=== PATIENT | male | born 1965 | race Two or more races ===

== ENCOUNTER 2016-05-03 08:19 | Emergency (ER) | payer MEDICAID ==
[~2016-05-03] VITALS: Ht 165.1 cm; Wt 101.6 kg
[2016-05-03 08:26] VITALS: BP 140/95
[2016-05-03] MEDS ORDERED: KETOROLAC TROMETH 60MG/2ML VIAL IM ONE (09:45)
== END 2016-05-03 10:43 | disposition home or self-care (01) ==
LOC: ER 08:25
DX: S46.012A Strain of muscle(s) and tendon(s) of the rotator cuff of left shoulder, initial encounter (principal); X58.XXXA Exposure to other specified factors, initial encounter; Y93.89 Activity, other specified; Y99.8 Other external cause status; Y92.69 Other specified industrial and construction area as the place of occurrence of the external cause
CPT/HCPCS: 73030; 93005; 96372; 99284; J1885

== ENCOUNTER 2016-07-03 11:39 | Emergency (ER) | payer MEDICAID ==
[~2016-07-03] VITALS: Ht 165.1 cm; Wt 90.7 kg
[2016-07-03 12:10] VITALS: BP 130/98
[2016-07-03] MEDS ORDERED: KETOROLAC TROMETH 60MG/2ML VIAL IM ONE (12:30)
== END 2016-07-03 12:56 | disposition home or self-care (01) ==
LOC: ER 11:39
DX: M25.511 Pain in right shoulder (principal); I10 Essential (primary) hypertension; E78.5 Hyperlipidemia, unspecified
CPT/HCPCS: 73030; 96372; 99284; J1885

== ENCOUNTER 2018-04-28 20:50 | Emergency (ER) | payer MEDICAID ==
[~2018-04-28] VITALS: Ht 167.6 cm; Wt 88.5 kg
[2018-04-28 22:03] LABS: Basophils # (auto) 0.1 uL; Basophils % (auto) 0.6 % (0.0-2.0); Eosinophils # (auto) 0.1 uL; Eosinophils % (auto) 0.7 % (0.0-7.0); Hematocrit 46.5 % (41.0-53.0); Hemoglobin 15.5 g/dL (13.5-17.5); Lymphocytes # (auto) 1.6 uL; Lymphocytes % (auto) 14.5 % (10.0-50.0); Mean Corpuscular Hemoglobin 30.3 pg (28.0-32.0); Mean Corpuscular Hgb Conc. 33.3 g/dL (32.0-36.0); Monocytes # (auto) 0.6 uL; Monocytes % (auto) 4.9 % (0.0-12.0); Neutrophils % (auto) 79.3 % (37.0-80.0); Nucleated Red Blood Cells % 0.1 %; Platelet Count (auto) 316 10^3/uL (140-450); Red Cell Distribution Width 14.9 % (11.8-14.3); White Blood Cell 11.3 10^3/uL (4.4-10.8)
[2018-04-28 22:15] LABS: Chloride 108 mmol/L (98-107); Potassium 3.6 mmol/L (3.5-5.1); Sodium 138 mmol/L (136-145)
[2018-04-28 22:21] LABS: INR 0.95 (0.9-1.15); Partial Thromboplastin Time 27.4 sec (23.78-33.04); Prothrombin Time 10.2 sec (9.27-12.13)
[2018-04-28 22:22] LABS: Urine Bacteria NONE SEEN /hpf (None Seen); Urine Blood Negative /uL (Negative); Urine Mucus FEW (None Seen); Urine Specific Gravity 1.031 (1.001-1.035); Urine WBC 1 /hpf (0 - 3)
[2018-04-28 22:25] LABS: Alanine Aminotransferase 23 U/L (16-61); Albumin 4.2 g/dL (3.4-5.0); Alkaline Phosphatase 97 U/L (45-117); Amylase 67 U/L (25-115); Anion Gap 5 (5-15); Aspartate Aminotransferase 11 U/L (15-37); BUN/Creatinine Ratio 13.2; Bilirubin, Total 0.3 mg/dL (0.2-1.0); Blood Urea Nitrogen 10 mg/dL (7-18); Calcium 8.5 mg/dL (8.5-10.1); Carbon Dioxide 25 mmol/L (21-32); GFR African American 137 mL/min; GFR Non-African American 114 mL/min; Glucose 100 mg/dL (74-106); Lipase 79 U/L (73-393); Magnesium 2.3 mg/dL (1.6-2.6); Total Protein 7.9 g/dL (6.4-8.2)
[2018-04-29] VITALS: BP 136/84
[2018-04-29] MEDS ORDERED: ONDANSETRON HCL 4 MG/2 ML VIAL IV ONE
[2018-04-29] MEDS ORDERED: MORPHINE SULFATE 4 MG/ML SYR/VIAL IV ONE
== END 2018-04-29 01:51 | disposition home or self-care (01) ==
LOC: ER 20:51
DX: K29.00 Acute gastritis without bleeding (principal); D72.829 Elevated white blood cell count, unspecified; E78.5 Hyperlipidemia, unspecified; I10 Essential (primary) hypertension; Z90.49 Acquired absence of other specified parts of digestive tract
CPT/HCPCS: 36415; 71046; 74176; 80053; 81001; 82150; 83690; 83735; 84484; 85025; 85610; 85730; 93005; 96374; 96375; 99284; J2270; J2405

== ENCOUNTER 2018-06-30 12:19 | Emergency (ER) | payer MEDICARE, MEDICAID ==
[~2018-06-30] VITALS: Ht 167.6 cm; Wt 90.7 kg
[2018-06-30 12:33] VITALS: BP 125/83
== END 2018-06-30 14:26 | disposition home or self-care (01) ==
LOC: ER 12:22
DX: H66.93 Otitis media, unspecified, bilateral (principal); E78.5 Hyperlipidemia, unspecified; I10 Essential (primary) hypertension; Z90.49 Acquired absence of other specified parts of digestive tract
CPT/HCPCS: 82962

== ENCOUNTER → 2018-07-30 | Outpatient (CLI) | payer MEDICARE, MEDICAID ==
[~2018-07-30] MED LIST: PERCOT PO
[2018-07-30 11:35] LABS: Urine Bacteria NONE SEEN /hpf (None Seen); Urine Blood Negative /uL (Negative); Urine Specific Gravity 1.015 (1.001-1.035); Urine WBC <1 /hpf (0 - 3)
[2018-07-30 11:41] LABS: Basophils # (auto) 0.1 uL; Eosinophils # (auto) 0.1 uL; Eosinophils % (auto) 2.3 % (0.0-7.0); Hematocrit 49.7 % (41.0-53.0); Lymphocytes # (auto) 1.7 uL; Lymphocytes % (auto) 26.8 % (10.0-50.0); Mean Corpuscular Hemoglobin 31.3 pg (28.0-32.0); Mean Corpuscular Hgb Conc. 34.2 g/dL (32.0-36.0); Mean Corpuscular Volume 91.5 fL (80.0-100.0); Monocytes # (auto) 0.4 uL; Monocytes % (auto) 6.7 % (0.0-12.0); Neutrophils % (auto) 63.2 % (37.0-80.0); Nucleated Red Blood Cells % 0.1 %; Platelet Count (auto) 291 10^3/uL (140-450); Red Blood Cells 5.43 10^6/uL (4.5-5.90); Red Cell Distribution Width 14.4 % (11.8-14.3); White Blood Cell 6.4 10^3/uL (4.4-10.8)
[2018-07-30 12:03] LABS: Albumin 4.3 g/dL (3.4-5.0); BUN/Creatinine Ratio 14.7; Calcium 9.3 mg/dL (8.5-10.1)
[2018-07-30 12:10] LABS: Bilirubin, Total 0.5 mg/dL (0.2-1.0); Total Protein 8.1 g/dL (6.4-8.2)
== END | disposition home or self-care (01) ==
LOC: LAB 10:50
PROVIDERS: ATTEND Internal Medicine
DX: Z12.5 Encounter for screening for malignant neoplasm of prostate (principal); I10 Essential (primary) hypertension; E78.5 Hyperlipidemia, unspecified; R79.89 Other specified abnormal findings of blood chemistry
CPT/HCPCS: 36415; 80053; 80061; 81001; 83036; 84153; 84443; 85025

== ENCOUNTER 2018-08-01 10:47 | Inpatient (IN) | payer MEDICARE, MEDICAID ==
[~2018-08-01] VITALS: Ht 165.1 cm; Wt 83.7 kg
[2018-08-01] MEDS ORDERED: SODIUM CHLORIDE 0.9% 500 ML IVB ONE (11:05)
[2018-08-01] MEDS ORDERED: FAMOTIDINE (10MG/ML) 2ML VL IV ONE (11:15)
[2018-08-01] MEDS ORDERED: MORPHINE SULFATE 4 MG/ML SYR/VIAL IV ONE ×2 (11:15→14:00)
[2018-08-01] MEDS ORDERED: ONDANSETRON HCL 4 MG/2 ML VIAL IV ONE (11:15)
[2018-08-01 11:31] LABS: Basophils # (auto) 0.1 uL; Eosinophils # (auto) 0.1 uL; Eosinophils % (auto) 0.6 % (0.0-7.0); Hematocrit 52.9 % (41.0-53.0); Hemoglobin 18.1 g/dL (13.5-17.5); Lymphocytes # (auto) 2.2 uL; Lymphocytes % (auto) 21.9 % (10.0-50.0); Mean Corpuscular Hemoglobin 31.3 pg (28.0-32.0); Mean Corpuscular Hgb Conc. 34.2 g/dL (32.0-36.0); Mean Corpuscular Volume 91.6 fL (80.0-100.0); Monocytes # (auto) 0.9 uL; Monocytes % (auto) 8.6 % (0.0-12.0); Neutrophils # (auto) 6.9 uL; Neutrophils % (auto) 67.9 % (37.0-80.0); Nucleated Red Blood Cells % 0.3 %; Platelet Count (auto) 307 10^3/uL (140-450); Red Blood Cells 5.78 10^6/uL (4.5-5.90); Red Cell Distribution Width 14.3 % (11.8-14.3); White Blood Cell 10.2 10^3/uL (4.4-10.8)
[2018-08-01 11:45] LABS: Amylase 48 U/L (25-115); INR 0.96 (0.9-1.15); Lipase 59 U/L (73-393); Partial Thromboplastin Time 29.4 sec (23.64-32.05); Prothrombin Time 10.4 sec (9.06-12.60)
[2018-08-01 11:47] LABS: Albumin 4.8 g/dL (3.4-5.0); BUN/Creatinine Ratio 10.9; Calcium 9.9 mg/dL (8.5-10.1); Potassium 3.7 mmol/L (3.5-5.1)
[2018-08-01 11:49] LABS: Bilirubin, Total 0.7 mg/dL (0.2-1.0); Total Protein 9.4 g/dL (6.4-8.2)
[2018-08-01] MEDS ORDERED: MORPHINE SULF INJ 2 MG/ML SYRINGE 1ML IV PRN (13:30)
[2018-08-01] MEDS ORDERED: NITROGLYCERIN 0.4 MG SL TAB SL PRN (13:30)
[2018-08-01] MEDS ORDERED: MORPHINE SULFATE 4 MG/ML SYR/VIAL IV PRN (13:30)
[2018-08-01] MEDS ORDERED: ACETAMINOPHEN 500 MG TAB PO PRN (13:30)
[2018-08-01] MEDS ORDERED: FAMOTIDINE (10MG/ML) 2ML VL IV SCH (13:30)
[2018-08-01] MEDS ORDERED: traMADol HCL 50 MG TAB PO PRN (13:30)
[2018-08-01] MEDS ORDERED: MORPHINE SULFATE 4 MG/ML SYR/VIAL ONE (13:55)
[2018-08-01] MEDS: SODIUM CHLORIDE 0.9% 1,000 ML IV SCH ×2 (13:56→23:30)
[2018-08-01] MEDS: PROMETHAZINE HCL 25 MG/ML 1ML IV PRN ×2 (13:59→20:33)
[2018-08-01] MEDS ORDERED: PANTOPRAZOLE 40 MG TAB PO ONE (14:15)
[2018-08-01] MEDS ORDERED: MANNITOL FTV 25% 12.5 GM/50 ML 50 ML IV ONE (14:30)
[2018-08-01] MEDS ORDERED: MANNITOL 20 % (20GM/100ML) 500 ML IV ONE (15:03)
[2018-08-01] MEDS ORDERED: diphenhdrAMINE HCL 50 MG/1 ML VL ONE (15:18)
[2018-08-01] MEDS ORDERED: NALOXONE HCL 0.4 MG/ML VIAL ONE (15:18)
[2018-08-01] MEDS ORDERED: FLUMAZENIL 0.1 MG/ML INJ 10ML MDV IV ONE (15:18)
[2018-08-01] MEDS ORDERED: LIDOCAINE VISCOUS 2% 15ML UD ONE (15:18)
[2018-08-01] MEDS: MIDAZOLAM HCL 5 MG/ML-1ML VIAL ONE ×2 (15:39→15:42)
[2018-08-01] MEDS: fentaNYL CITRATE 100 MCG/2 ML VL ONE ×2 (15:39→15:42)
--- NOTE | 2018-08-01 16:25 | NUR ---
MS admit from RYANNE SCHMITT admitted to tele/MS after SBAR received. Patient oriented to Lili ackerman RN, unit, room, bed, and unit policies regarding patient care and visiting hours. Patient weighed by bed scale and encouraged to call if they need something. Patient is s/p EGD. Instructed patient on POC, fall precautions and to call for assistance as needed. patient verbalized understanding. Will continue to monitor q1hr & PRN.
[2018-08-01 16:53] VITALS: BP 108/78
--- NOTE | 2018-08-01 17:23 | NUR ---
RE: mannitol Called DIVISIONAL MERCHANDISING MANAGER to request Mannitol per MD's order. Medication to be sent to the unit per DIVISIONAL MERCHANDISING MANAGERAp.
[2018-08-01 17:38] VITALS: BP 108/78
[2018-08-01] MEDS: SUCRALFATE 1 GM/10 ML ORAL SUSP PO SCH ×2 (17:39→20:32)
[2018-08-01] MEDS: OXYCODONE W/ ACETAMINOPHEN 5/325MG TABLET PO PRN (17:40)
[2018-08-01 18:15] LABS: Hematocrit 46.4 % (41.0-53.0); Hemoglobin 15.4 g/dL (13.5-17.5)
--- NOTE | 2018-08-01 18:59 | NUR ---
Closing note patient resting in bed with even and unlabored respirations, no distress noted. Fall precautions in place with bed in lowest locked position and x2 side rails up, call light within reach. Patient's personal cane at bedside.
[2018-08-01] MEDS: MORPHINE SULFATE 4 MG/ML SYR/VIAL IV PRN (20:33)
[2018-08-01] MEDS: PANTOPRAZOLE 40 MG TAB PO SCH (20:33)
[2018-08-01] MEDS: TEMAZEPAM 15 MG CAP PO PRN (21:33)
[2018-08-01 21:37] VITALS: BP 121/79
[2018-08-01 23:46] LABS: Urine Bacteria NONE SEEN /hpf (None Seen); Urine Blood Negative /uL (Negative); Urine Specific Gravity 1.019 (1.001-1.035); Urine WBC <1 /hpf (0 - 3)
[2018-08-02] MEDS: OXYCODONE W/ ACETAMINOPHEN 5/325MG TABLET PO PRN (00:34)
[2018-08-02] MEDS: PROMETHAZINE HCL 25 MG/ML 1ML IV PRN ×2 (00:36→05:59)
[2018-08-02] MEDS: MORPHINE SULFATE 4 MG/ML SYR/VIAL IV PRN ×5 (00:36→20:25)
[2018-08-02 01:38] LABS: Hematocrit 44.3 % (41.0-53.0)
[2018-08-02 05:13] VITALS: BP 101/75
[2018-08-02 05:33] LABS: Hematocrit 43.2 % (41.0-53.0); Hemoglobin 14.4 g/dL (13.5-17.5)
[2018-08-02] MEDS: SUCRALFATE 1 GM/10 ML ORAL SUSP PO SCH ×4 (06:00→20:35)
--- NOTE | 2018-08-02 07:05 | NUR ---
Opening Shift Note Assumed care of patient, awake and alert. No S/S of distress/SOB or pain. Instructed on POC and to call for assist PRN, will continue to monitor for changes Q1hr and PRN.
[2018-08-02 08:00] VITALS: BP 143/85
[2018-08-02 09:00] VITALS: BP 93/64
[2018-08-02] MEDS: SODIUM CHLORIDE 0.9% 1,000 ML IV SCH ×2 (09:30→20:59)
[2018-08-02] MEDS: PANTOPRAZOLE 40 MG TAB PO SCH ×2 (10:34→20:25)
[2018-08-02 13:18] VITALS: BP 111/77
[2018-08-02 17:05] VITALS: BP 110/78
--- NOTE | 2018-08-02 19:20 | NUR ---
Care endorsed to production shift supervisor RN. No distress noted, bedside rounding performed with production shift supervisor RN.
--- NOTE | 2018-08-02 19:51 | NUR ---
received report frmonik chaidez rn poc reviewed
[2018-08-02] MEDS: TEMAZEPAM 15 MG CAP PO PRN (21:22)
[2018-08-02 22:00] VITALS: BP 105/79
--- NOTE | 2018-08-02 23:27 | NUR ---
pt pulled out iv accidently cannula intact new iv site 22g right forearm
[2018-08-03] MEDS: MORPHINE SULFATE 4 MG/ML SYR/VIAL IV PRN ×4 (00:30→14:00)
--- NOTE | 2018-08-03 04:34 | NUR ---
resting with eyes closed resp even and unlabored, no c/o discomfort at this time
[2018-08-03 05:00] VITALS: BP 107/66
[2018-08-03] MEDS: SUCRALFATE 1 GM/10 ML ORAL SUSP PO SCH ×3 (05:08→17:00)
[2018-08-03] MEDS: SODIUM CHLORIDE 0.9% 1,000 ML IV SCH ×2 (05:13→15:30)
[2018-08-03 05:42] LABS: Basophils # (auto) 0.1 uL; Basophils % (auto) 1.1 % (0.0-2.0); Eosinophils # (auto) 0.2 uL; Eosinophils % (auto) 3.5 % (0.0-7.0); Hematocrit 42.7 % (41.0-53.0); Hemoglobin 14.4 g/dL (13.5-17.5); Lymphocytes # (auto) 2.5 uL; Lymphocytes % (auto) 45.4 % (10.0-50.0); Mean Corpuscular Hemoglobin 30.9 pg (28.0-32.0); Mean Corpuscular Hgb Conc. 33.8 g/dL (32.0-36.0); Mean Corpuscular Volume 91.5 fL (80.0-100.0); Monocytes # (auto) 0.6 uL; Monocytes % (auto) 11.5 % (0.0-12.0); Neutrophils # (auto) 2.1 uL; Neutrophils % (auto) 38.5 % (37.0-80.0); Nucleated Red Blood Cells % 0.1 %; Platelet Count (auto) 242 10^3/uL (140-450); Red Blood Cells 4.66 10^6/uL (4.5-5.90); Red Cell Distribution Width 14.3 % (11.8-14.3); White Blood Cell 5.6 10^3/uL (4.4-10.8)
[2018-08-03 05:45] LABS: BUN/Creatinine Ratio 15.2; Calcium 8.5 mg/dL (8.5-10.1); Potassium 3.7 mmol/L (3.5-5.1)
--- NOTE | 2018-08-03 06:51 | NUR ---
report given to am nurse poc reviewed
[2018-08-03 08:07] VITALS: BP 103/70
[2018-08-03 09:05] VITALS: BP 103/70
[2018-08-03] MEDS: PANTOPRAZOLE 40 MG TAB PO SCH (09:33)
[2018-08-03] MEDS ORDERED: PERCOT PO (09:37)
[2018-08-03 13:00] VITALS: BP 116/83
--- NOTE | 2018-08-03 15:59 | NUR ---
UNABLE TO SEND C. DIFF SAMPLE Spoke to lab. Per lab, C. Diff sample will get rejected due to stool being formed. Stool occult sample sent. No visible blood noted.
--- NOTE | 2018-08-03 16:20 | NUR ---
Spoke with Dr. Auguste, patient does not need to follow-up with urology as outpatient because kidney stone has resolved and patient is asymptomatic.
[2018-08-03 16:56] VITALS: BP 102/75
[2018-08-03 17:02] VITALS: BP 102/75
--- NOTE | 2018-08-03 18:42 | NUR ---
Discharge instructions given as ordered. Encourage to follow up with PMD as instructed. All questions and concerns addressed. Patient verbalized understanding. Medication reconciliation form completed and copy given to patient. Patient denies home medications held in Pharmacy. IV removed with catheter intact, pressure dressing applied. Patient requested to ambulate to vehicle, with all personal belongings, accompanied by staff and family member. No distress noted at time of departure.
== END 2018-08-03 18:42 | disposition home or self-care (01) | DRG 377 ==
LOC: ER 10:47 → OVERFLOW 13:33 → MERGE 13:33 → WEST WING 16:34
PROVIDERS: ADMIT Internal Medicine; ATTEND Internal Medicine
PROC: 0DB68ZX Excision of Stomach, Via Natural or Artificial Opening Endoscopic, Diagnostic (ICD-10-PCS; principal; 2018-08-01 15:32)
DX: K29.71 Gastritis, unspecified, with bleeding (principal); N17.0 Acute kidney failure with tubular necrosis; K29.81 Duodenitis with bleeding; N20.0 Calculus of kidney; I10 Essential (primary) hypertension; E78.5 Hyperlipidemia, unspecified; M17.0 Bilateral primary osteoarthritis of knee; F12.90 Cannabis use, unspecified, uncomplicated; G89.29 Other chronic pain; H91.90 Unspecified hearing loss, unspecified ear; K42.9 Umbilical hernia without obstruction or gangrene; K57.91 Diverticulosis of intestine, part unspecified, without perforation or abscess with bleeding; I12.9 Hypertensive chronic kidney disease with stage 1 through stage 4 chronic kidney disease, or unspecified chronic kidney disease; N18.9 Chronic kidney disease, unspecified; Z90.49 Acquired absence of other specified parts of digestive tract
CPT/HCPCS: 36415; 43239; 71045; 74176; 80048; 80053; 80061; 81001; 82150; 82270; 83036; 83690; 84153; 84443; 85014; 85018; 85025; 85045; 85610; 85652; 85730; 86141; 87086; 93005; 94761; 96361; 96365; 96375; G0378; J2250; J2405; J3490

== ENCOUNTER → 2018-09-08 | Outpatient (CLI) | payer MEDICARE, MEDICAID | END | disposition home or self-care (01) | LOC: LAB 07:53 | PROVIDERS: ATTEND Internal Medicine | DX: E78.5 Hyperlipidemia, unspecified (principal); R73.03 Prediabetes | CPT/HCPCS: 36415; 82043; 83036 ==

== ENCOUNTER 2018-09-23 11:38 | Emergency (ER) | payer MEDICARE, MEDICAID ==
[~2018-09-23] VITALS: Ht 165.1 cm; Wt 81.6 kg
[2018-09-23] MEDS ORDERED: SODIUM CHLORIDE 0.9% 1,000 ML IVB ONE (11:46)
[2018-09-23] MEDS ORDERED: ONDANSETRON HCL 4 MG/2 ML VIAL IV ONE (12:00)
[2018-09-23] MEDS ORDERED: KETOROLAC TROMETH 15 mg/ml 1ML VL IV ONE (12:00)
[2018-09-23] MEDS ORDERED: MORPHINE SULFATE 4 MG/ML SYR/VIAL IV ONE (12:00)
[2018-09-23 12:27] LABS: Basophils # (auto) 0.1 uL; Basophils % (auto) 1.4 % (0.0-2.0); Eosinophils # (auto) 0.2 uL; Eosinophils % (auto) 2.5 % (0.0-7.0); Hematocrit 47.2 % (41.0-53.0); Hemoglobin 15.9 g/dL (13.5-17.5); Lymphocytes % (auto) 31.7 % (10.0-50.0); Mean Corpuscular Hemoglobin 30.6 pg (28.0-32.0); Mean Corpuscular Hgb Conc. 33.6 g/dL (32.0-36.0); Monocytes # (auto) 0.4 uL; Monocytes % (auto) 5.8 % (0.0-12.0); Neutrophils # (auto) 3.7 uL; Neutrophils % (auto) 58.6 % (37.0-80.0); Platelet Count (auto) 285 10^3/uL (140-450); Red Blood Cells 5.18 10^6/uL (4.5-5.90); Red Cell Distribution Width 13.7 % (11.8-14.3); White Blood Cell 6.4 10^3/uL (4.4-10.8)
[2018-09-23 12:45] LABS: Albumin 4.2 g/dL (3.4-5.0); Calcium 9.3 mg/dL (8.5-10.1); Potassium 3.8 mmol/L (3.5-5.1)
[2018-09-23 12:55] LABS: BUN/Creatinine Ratio 12.5; Bilirubin, Total 0.3 mg/dL (0.2-1.0); Total Protein 8.2 g/dL (6.4-8.2)
[2018-09-23 14:14] VITALS: BP 114/72
== END 2018-09-23 15:30 | disposition home or self-care (01) ==
LOC: ER 11:38
DX: N20.0 Calculus of kidney (principal); E78.5 Hyperlipidemia, unspecified; Z79.899 Other long term (current) drug therapy; Z90.49 Acquired absence of other specified parts of digestive tract
CPT/HCPCS: 36415; 74176; 80053; 85025; 94761; 96374; 96375; 99284; J1885; J2270; J2405; J7030

== ENCOUNTER → 2018-10-15 | Outpatient (CLI) | payer MEDICARE, MEDICAID ==
[2018-10-15 13:25] LABS: Albumin 3.9 g/dL (3.4-5.0)
[2018-10-15 13:30] LABS: Bilirubin, Direct 0.1 mg/dL (0-0.2); Bilirubin, Total 0.5 mg/dL (0.2-1.0); Total Protein 7.5 g/dL (6.4-8.2)
== END | disposition home or self-care (01) ==
LOC: LAB 12:43
PROVIDERS: ATTEND Internal Medicine
DX: E78.5 Hyperlipidemia, unspecified (principal)
CPT/HCPCS: 36415; 80076

== ENCOUNTER → 2018-11-17 | Outpatient (CLI) | payer MEDICARE, MEDICAID ==
[2018-11-17 10:24] LABS: Bilirubin, Direct 0.2 mg/dL (0-0.2); Bilirubin, Total 0.6 mg/dL (0.2-1.0); Total Protein 7.5 g/dL (6.4-8.2)
== END | disposition home or self-care (01) ==
LOC: LAB 08:52
PROVIDERS: ATTEND Internal Medicine
DX: E78.5 Hyperlipidemia, unspecified (principal)
CPT/HCPCS: 36415; 80076

== ENCOUNTER → 2018-12-29 | Outpatient (CLI) | payer MEDICARE, MEDICAID ==
[2018-12-29 14:12] LABS: Albumin 4.3 g/dL (3.4-5.0); Bilirubin, Direct 0.2 mg/dL (0-0.2); Bilirubin, Total 0.5 mg/dL (0.2-1.0); Total Protein 8.1 g/dL (6.4-8.2)
== END | disposition home or self-care (01) ==
LOC: LAB 12:54
PROVIDERS: ATTEND Internal Medicine Gastroenterology
DX: E11.9 Type 2 diabetes mellitus without complications (principal); E78.5 Hyperlipidemia, unspecified
CPT/HCPCS: 36415; 80061; 80076; 82565; 83036; 84443; 84520

== ENCOUNTER → 2019-03-16 | Outpatient (CLI) | payer MEDICARE, MEDICAID ==
[2019-03-16 10:59] LABS: Urine Bacteria NONE SEEN /hpf (None Seen); Urine Blood Negative /uL (Negative); Urine Mucus FEW (None Seen); Urine Specific Gravity 1.015 (1.001-1.035); Urine WBC <1 /hpf (0 - 3)
[2019-03-16 11:25] LABS: Amylase 72 U/L (25-115); Lipase 115 U/L (73-393)
== END | disposition home or self-care (01) ==
LOC: LAB 10:03
PROVIDERS: ATTEND Internal Medicine
DX: E04.1 Nontoxic single thyroid nodule (principal); E11.9 Type 2 diabetes mellitus without complications; R10.9 Unspecified abdominal pain; R19.7 Diarrhea, unspecified
CPT/HCPCS: 36415; 81001; 82150; 83690; 84403; 84439; 84443; 84481

== ENCOUNTER → 2019-04-24 | Outpatient (CLI) | payer MEDICARE, MEDICAID ==
[~2019-04-24] MED LIST changes: +FUROSEMIDE 40 MG/4 ML VIAL IV ONE
== END | disposition home or self-care (01) ==
LOC: XY 08:10
PROVIDERS: ATTEND Urology
DX: R33.9 Retention of urine, unspecified (principal); N13.30 Unspecified hydronephrosis
CPT/HCPCS: 36415; 78707; 84132; A9562; J1940

== ENCOUNTER 2019-05-11 06:51 | Day surgery (SDC) | payer MEDICARE, MEDICAID ==
[2019-05-08 13:59] LABS: Basophils # (auto) 0.1 uL; Basophils % (auto) 1.7 % (0.0-2.0); Eosinophils # (auto) 0.2 uL; Eosinophils % (auto) 2.8 % (0.0-7.0); Hematocrit 46.7 % (41.0-53.0); Hemoglobin 15.7 g/dL (13.5-17.5); Lymphocytes # (auto) 2.3 uL; Lymphocytes % (auto) 40.3 % (10.0-50.0); Mean Corpuscular Hemoglobin 30.7 pg (28.0-32.0); Mean Corpuscular Hgb Conc. 33.6 g/dL (32.0-36.0); Mean Corpuscular Volume 91.5 fL (80.0-100.0); Monocytes # (auto) 0.5 uL; Monocytes % (auto) 8.6 % (0.0-12.0); Neutrophils # (auto) 2.7 uL; Neutrophils % (auto) 46.6 % (37.0-80.0); Nucleated Red Blood Cells % 0.1 %; Platelet Count (auto) 292 10^3/uL (140-450); Red Cell Distribution Width 14.5 % (11.8-14.3); White Blood Cell 5.8 10^3/uL (4.4-10.8)
[2019-05-08 14:01] LABS: Urine Bacteria NONE SEEN /hpf (None Seen); Urine Blood Negative /uL (Negative); Urine Specific Gravity 1.019 (1.001-1.035); Urine WBC <1 /hpf (0 - 3)
[2019-05-08 14:23] LABS: Albumin 4.1 g/dL (3.4-5.0); BUN/Creatinine Ratio 13.3; Calcium 9.2 mg/dL (8.5-10.1); Potassium 4.3 mmol/L (3.5-5.1)
[2019-05-08 14:26] LABS: Bilirubin, Total 0.4 mg/dL (0.2-1.0); Total Protein 8.1 g/dL (6.4-8.2)
[2019-05-08 14:28] LABS: INR 0.94 (0.9-1.15); Partial Thromboplastin Time 27.5 sec (23.64-32.05)
[~2019-05-11 06:51] MED LIST changes: +ASPI-404 PO; +ATOR20TA50 PO; -FUROSEMIDE 40 MG/4 ML VIAL IV ONE; +GABA400C11 PO; +LACT10SO3 PO; +PANT40TA2 PO; +SUCR1TAB38 PO; +TAM04C PO; +TEMA30CA PO
[2019-05-11] MEDS ORDERED: ceFAZolin 1GM/50ML 50 ML IV ONE (07:43)
[2019-05-11] MEDS ORDERED: MEPERIDINE HCL (25 MG/ML) 1ML VIAL ONE (08:51)
[2019-05-11] MEDS ORDERED: MIDAZOLAM HCL 1MG/1ML-2 ML VIAL ONE (08:52)
[2019-05-11] MEDS ORDERED: fentaNYL CITRATE 100 MCG/2 ML VL ONE (08:52)
[2019-05-11] MEDS ORDERED: PROPOFOL 10 MG/ML 20 ML IV ONE (09:09)
[2019-05-11] MEDS ORDERED: DexAMETHasone SOD PHOS 10MG/1ML VIAL INJ ONE (09:09)
[2019-05-11] MEDS ORDERED: ePHEDrine SULFATE 50 MG/ML AMP ONE (09:15)
[2019-05-11] MEDS ORDERED: ONDANSETRON HCL 4 MG/2 ML VIAL ONE (09:33)
[2019-05-11] MEDS ORDERED: ONDANSETRON HCL 4 MG/2 ML VIAL IV PRN (09:45)
[2019-05-11] MEDS ORDERED: ePHEDrine SULFATE 50 MG/ML AMP IV PRN (09:45)
[2019-05-11] MEDS ORDERED: MIDAZOLAM HCL 1MG/1ML-2 ML VIAL IV PRN (09:45)
[2019-05-11] MEDS ORDERED: KETOROLAC TROMETH 15 mg/ml 1ML VL IV ONE (09:45)
[2019-05-11] MEDS ORDERED: LABETALOL HCL 5 MG/ML 4ML SYRINGE IV PRN (09:45)
[2019-05-11] MEDS ORDERED: MORPHINE SULFATE 4 MG/ML SYR/VIAL IV PRN (09:45)
[2019-05-11] MEDS ORDERED: KETOROLAC TROMETH 15 mg/ml 1ML VL ONE (10:17)
[2019-05-11] MEDS: HYDROmorphone HCL 2 MG/ML VL IV PRN ×3 (10:33→11:03)
[2019-05-11 11:28] VITALS: BP 118/77
== END 2019-05-11 11:37 | disposition home or self-care (01) ==
LOC: SUR 06:51
PROVIDERS: ATTEND Urology
DX: N13.0 Hydronephrosis with ureteropelvic junction obstruction (principal); Z79.82 Long term (current) use of aspirin; Z79.899 Other long term (current) drug therapy; Z79.01 Long term (current) use of anticoagulants; Z98.890 Other specified postprocedural states
CPT/HCPCS: 36415; 80053; 81001; 85025; 85610; 85730; J0690; J1100; J2250; J2405; J2704

== ENCOUNTER 2019-05-15 05:29 | Emergency (ER) | payer MEDICARE, MEDICAID ==
[~2019-05-15] VITALS: Ht 165.1 cm; Wt 79.4 kg
[2019-05-15 06:04] LABS: Urine Bacteria FEW /hpf (None Seen); Urine Blood 3+ /uL (Negative); Urine Specific Gravity 1.001 (1.001-1.035); Urine WBC 7 /hpf (0 - 3)
[2019-05-15] MEDS ORDERED: SODIUM CHLORIDE 0.9% 1,000 ML IVB ONE (06:23)
[2019-05-15] MEDS ORDERED: KETOROLAC TROMETH 15 mg/ml 1ML VL IV ONE (06:30)
[2019-05-15 06:51] LABS: Basophils # (auto) 0.1 10 ^3/uL (0-0.2); Basophils % (auto) 0.8 % (0.0-2.0); Eosinophils # (auto) 0.1 10 ^3/uL (0-0.8); Eosinophils % (auto) 1.3 % (0.0-7.0); Hematocrit 40.8 % (41.0-53.0); Hemoglobin 13.8 g/dL (13.5-17.5); Lymphocytes # (auto) 1.8 10 ^3/uL (0.4-5.4); Lymphocytes % (auto) 22.8 % (10.0-50.0); Mean Corpuscular Hemoglobin 30.8 pg (28.0-32.0); Mean Corpuscular Hgb Conc. 33.8 g/dL (32.0-36.0); Mean Corpuscular Volume 91.1 fL (80.0-100.0); Monocytes # (auto) 0.8 10 ^3/uL (0-1.3); Neutrophils # (auto) 5.2 10 ^3/uL (1.6-8.6); Neutrophils % (auto) 65.1 % (37.0-80.0); Platelet Count (auto) 274 10^3/uL (140-450); Red Blood Cells 4.48 10^6/uL (4.5-5.90); Red Cell Distribution Width 14.1 % (11.8-14.3)
[2019-05-15 07:04] LABS: Potassium 3.2 mmol/L (3.5-5.1)
[2019-05-15] MEDS ORDERED: ONDANSETRON HCL 4 MG/2 ML VIAL IV ONE (07:15)
[2019-05-15] MEDS ORDERED: MORPHINE SULFATE 4 MG/ML SYR/VIAL IV ONE (07:15)
[2019-05-15 07:16] LABS: Albumin 3.6 g/dL (3.4-5.0); BUN/Creatinine Ratio 12.8; Bilirubin, Total 0.7 mg/dL (0.2-1.0); Calcium 8.8 mg/dL (8.5-10.1); Total Protein 7.2 g/dL (6.4-8.2)
[2019-05-15] MEDS ORDERED: HYDROmorphone HCL 2 MG/ML VL IV ONE (12:30)
[2019-05-15 13:00] VITALS: BP 131/86
[2019-05-15] MEDS ORDERED: LIDOCAINE HCL 2% TOP JELLY 5ML TOP ONE ×2 (13:20→13:30)
== END 2019-05-15 14:25 | disposition home or self-care (01) ==
LOC: ER 05:29
DX: N13.2 Hydronephrosis with renal and ureteral calculous obstruction (principal); R10.32 Left lower quadrant pain; E78.5 Hyperlipidemia, unspecified; Z86.73 Personal history of transient ischemic attack (TIA), and cerebral infarction without residual deficits; Z90.49 Acquired absence of other specified parts of digestive tract; Z79.899 Other long term (current) drug therapy; Z79.82 Long term (current) use of aspirin; Z87.442 Personal history of urinary calculi; Z98.890 Other specified postprocedural states
CPT/HCPCS: 36415; 74176; 80053; 81001; 85025; 96374; 96375; 99285; J1170; J1885; J2270; J2405

== ENCOUNTER 2019-05-16 11:36 | Emergency (ER) | payer MEDICARE, MEDICAID ==
[~2019-05-16] VITALS: Ht 165.1 cm; Wt 79.4 kg
[2019-05-16 14:36] VITALS: BP 137/92
[2019-05-16] MEDS ORDERED: HYDROcodone-ACET 10/325MG TAB PO ONE (14:45)
== END 2019-05-16 15:27 | disposition home or self-care (01) ==
LOC: ER 11:38
DX: R31.9 Hematuria, unspecified (principal); E78.5 Hyperlipidemia, unspecified; Z90.49 Acquired absence of other specified parts of digestive tract; Z79.82 Long term (current) use of aspirin; Z79.899 Other long term (current) drug therapy

== ENCOUNTER → 2019-05-19 | Outpatient (CLI) | payer MEDICARE, MEDICAID | END | disposition home or self-care (01) | LOC: LAB 08:57 | PROVIDERS: ATTEND Internal Medicine | DX: N13.30 Unspecified hydronephrosis (principal); N39.0 Urinary tract infection, site not specified | CPT/HCPCS: 87086; 87088; 87186 ==

== ENCOUNTER → 2019-05-25 | Outpatient (CLI) | payer MEDICARE, MEDICAID ==
[2019-05-25 14:19] LABS: Cholesterol 176 mg/dL (< 200)
[2019-05-25 14:22] LABS: HDL Cholesterol 52 mg/dL (40-59); LDL Cholesterol 121 mg/dL (< 100); Triglycerides 102 mg/dL (< 150)
== END | disposition home or self-care (01) ==
LOC: LAB 13:17
PROVIDERS: ATTEND Internal Medicine
DX: E11.9 Type 2 diabetes mellitus without complications (principal); E04.1 Nontoxic single thyroid nodule; E78.5 Hyperlipidemia, unspecified
CPT/HCPCS: 36415; 80061

== ENCOUNTER → 2019-06-16 | Outpatient (CLI) | payer MEDICARE, MEDICAID | END | disposition home or self-care (01) | LOC: LAB 10:25 | PROVIDERS: ATTEND Internal Medicine | DX: R31.0 Gross hematuria (principal) | CPT/HCPCS: 87086 ==

== ENCOUNTER → 2019-07-31 | Outpatient (CLI) | payer MEDICARE, MEDICAID | END | disposition home or self-care (01) | LOC: LAB 12:15 | PROVIDERS: ATTEND Urology | DX: R79.1 Abnormal coagulation profile (principal) | CPT/HCPCS: 36415; 82565; 84520 ==

== ENCOUNTER → 2019-08-04 | Outpatient (CLI) | payer MEDICARE, MEDICAID ==
[~2019-08-04] MED LIST changes: +FUROSEMIDE 40 MG/4 ML VIAL IV ONE; +FUROSEMIDE 40 MG/4 ML VIAL ONE
== END | disposition home or self-care (01) ==
LOC: XYW 08:16
PROVIDERS: ATTEND Urology
DX: N20.0 Calculus of kidney (principal)
CPT/HCPCS: 36415; 78707; 84132; A9562; J1940

== ENCOUNTER → 2019-08-19 | Outpatient (CLI) | payer MEDICARE, MEDICAID ==
[~2019-08-19] MED LIST changes: -FUROSEMIDE 40 MG/4 ML VIAL IV ONE; -FUROSEMIDE 40 MG/4 ML VIAL ONE
[2019-08-19 11:04] LABS: Cholesterol 158 mg/dL (< 200); HDL Cholesterol 42 mg/dL (40-59); LDL Cholesterol 89 mg/dL (< 100); Triglycerides 158 mg/dL (< 150)
== END | disposition home or self-care (01) ==
LOC: LAB 09:34
PROVIDERS: ATTEND Internal Medicine
DX: R73.03 Prediabetes (principal); E03.9 Hypothyroidism, unspecified; N40.0 Benign prostatic hyperplasia without lower urinary tract symptoms
CPT/HCPCS: 36415; 80061; 82043; 83036; 84153

== ENCOUNTER 2019-08-26 10:43 | Emergency (ER) | payer MEDICARE, MEDICAID ==
[~2019-08-26] VITALS: Ht 152.4 cm; Wt 79.4 kg
[2019-08-26 11:23] LABS: Basophils # (auto) 0.1 10 ^3/uL (0-0.2); Eosinophils # (auto) 0.1 10 ^3/uL (0-0.8); Eosinophils % (auto) 2.2 % (0.0-7.0); Hemoglobin 14.8 g/dL (13.5-17.5); Lymphocytes # (auto) 1.9 10 ^3/uL (0.4-5.4); Lymphocytes % (auto) 36.2 % (10.0-50.0); Mean Corpuscular Hemoglobin 29.8 pg (28.0-32.0); Mean Corpuscular Hgb Conc. 32.9 g/dL (32.0-36.0); Mean Corpuscular Volume 90.8 fL (80.0-100.0); Monocytes # (auto) 0.4 10 ^3/uL (0-1.3); Monocytes % (auto) 8.2 % (0.0-12.0); Neutrophils # (auto) 2.7 10 ^3/uL (1.6-8.6); Neutrophils % (auto) 52.4 % (37.0-80.0); Nucleated Red Blood Cells % 0.1 %; Platelet Count (auto) 275 10^3/uL (140-450); Red Blood Cells 4.95 10^6/uL (4.5-5.90); Red Cell Distribution Width 14.5 % (11.8-14.3); White Blood Cell 5.2 10^3/uL (4.4-10.8)
[2019-08-26 11:35] LABS: Albumin 4.3 g/dL (3.4-5.0); Calcium 9.3 mg/dL (8.5-10.1); Potassium 3.9 mmol/L (3.5-5.1)
[2019-08-26 11:39] LABS: BUN/Creatinine Ratio 12.3; Bilirubin, Total 0.2 mg/dL (0.2-1.0)
[2019-08-26 11:42] LABS: Urine WBC None Seen /hpf (0 - 3)
[2019-08-26 11:55] LABS: Urine Bacteria FEW /hpf (None Seen); Urine Blood Negative /uL (Negative); Urine Mucus FEW (None Seen); Urine Specific Gravity 1.009 (1.001-1.035)
[2019-08-26 12:43] VITALS: BP 142/92
[2019-08-26] MEDS ORDERED: KETOROLAC TROMETH 60MG/2ML VIAL IM ONE (12:45)
== END 2019-08-26 13:29 | disposition home or self-care (01) ==
LOC: ER 10:43
DX: N13.30 Unspecified hydronephrosis (principal); E78.5 Hyperlipidemia, unspecified; Z90.49 Acquired absence of other specified parts of digestive tract; Z87.442 Personal history of urinary calculi; Z79.899 Other long term (current) drug therapy
CPT/HCPCS: 36415; 74176; 80053; 81001; 85025; 96372; 99284; J1885

== ENCOUNTER 2019-09-10 09:09 | Day surgery (SDC) | payer MEDICARE, MEDICAID ==
[2019-09-08 12:26] LABS: Urine WBC None Seen /hpf (0 - 3)
[2019-09-08 12:33] LABS: Basophils # (auto) 0.1 10 ^3/uL (0-0.2); Basophils % (auto) 1.2 % (0.0-2.0); Eosinophils # (auto) 0.2 10 ^3/uL (0-0.8); Eosinophils % (auto) 2.5 % (0.0-7.0); Hematocrit 44.7 % (41.0-53.0); Hemoglobin 14.6 g/dL (13.5-17.5); Lymphocytes # (auto) 2.6 10 ^3/uL (0.4-5.4); Lymphocytes % (auto) 33.5 % (10.0-50.0); Mean Corpuscular Hemoglobin 29.6 pg (28.0-32.0); Mean Corpuscular Hgb Conc. 32.7 g/dL (32.0-36.0); Mean Corpuscular Volume 90.6 fL (80.0-100.0); Monocytes # (auto) 0.6 10 ^3/uL (0-1.3); Monocytes % (auto) 7.8 % (0.0-12.0); Neutrophils # (auto) 4.2 10 ^3/uL (1.6-8.6); Nucleated Red Blood Cells % 0.1 %; Platelet Count (auto) 289 10^3/uL (140-450); Red Blood Cells 4.94 10^6/uL (4.5-5.90); Red Cell Distribution Width 14.7 % (11.8-14.3); White Blood Cell 7.6 10^3/uL (4.4-10.8)
[2019-09-08 12:38] LABS: Urine Bacteria NONE SEEN /hpf (None Seen); Urine Blood Negative /uL (Negative); Urine Specific Gravity 1.009 (1.001-1.035)
[2019-09-08 12:47] LABS: INR 0.96 (0.9-1.15); Partial Thromboplastin Time 28.9 sec (23.64-32.05)
[2019-09-08 12:56] LABS: Albumin 4.2 g/dL (3.4-5.0); Calcium 9.1 mg/dL (8.5-10.1); Potassium 4.2 mmol/L (3.5-5.1)
[2019-09-08 13:01] LABS: BUN/Creatinine Ratio 17.8; Bilirubin, Total 0.4 mg/dL (0.2-1.0); Total Protein 7.6 g/dL (6.4-8.2)
[~2019-09-10] VITALS: Ht 165.1 cm; Wt 83.9 kg
[~2019-09-10 09:09] MED LIST changes: -ASPI-404 PO; +ASPI-543 PO; +SUCR1TAB22 PO; -SUCR1TAB38 PO
[2019-09-10] MEDS ORDERED: ceFAZolin 1GM/50ML 50 ML IV ONE (09:51)
[2019-09-10] MEDS ORDERED: IOHEXOL 300 MG/ML 100ML BOTTLE IJ ONE (12:01)
[2019-09-10] MEDS ORDERED: ONDANSETRON HCL 4 MG/2 ML VIAL IV PRN (12:15)
[2019-09-10] MEDS ORDERED: MIDAZOLAM HCL 1MG/1ML-2 ML VIAL IV PRN (12:15)
[2019-09-10] MEDS ORDERED: LABETALOL HCL 5 MG/ML 4ML SYRINGE IV PRN (12:15)
[2019-09-10] MEDS ORDERED: MORPHINE SULFATE 4 MG/ML SYR/VIAL IV PRN (12:15)
[2019-09-10] MEDS ORDERED: ePHEDrine SULFATE 50 MG/ML AMP IV PRN (12:15)
[2019-09-10] MEDS ORDERED: ePHEDrine SULFATE 50 MG/ML AMP IV ONE (12:25)
[2019-09-10] MEDS ORDERED: fentaNYL CITRATE 100 MCG/2 ML VL ONE (12:44)
[2019-09-10] MEDS ORDERED: MIDAZOLAM HCL 1MG/1ML-2 ML VIAL ONE (12:45)
[2019-09-10] MEDS ORDERED: MEPERIDINE HCL (50 MG/ML) 1 ML VIAL ONE (12:45)
[2019-09-10] MEDS ORDERED: DexAMETHasone SOD PHOS 10MG/1ML VIAL INJ ONE (12:59)
[2019-09-10] MEDS ORDERED: PROPOFOL 10 MG/ML 20 ML IV ONE (12:59)
[2019-09-10] MEDS: HYDROmorphone HCL 2 MG/ML VL IV PRN ×2 (13:30→14:00)
[2019-09-10] MEDS ORDERED: BELLADONNA ALKAL/OPIUM (16.2/30MG) RECT SUPP PR ONE ×2 (14:00→14:19)
[2019-09-10 14:31] VITALS: BP 108/66
== END 2019-09-10 14:45 | disposition home or self-care (01) ==
LOC: SUR 09:09
PROVIDERS: ATTEND Urology
DX: N13.1 Hydronephrosis with ureteral stricture, not elsewhere classified (principal); Z86.718 Personal history of other venous thrombosis and embolism; Z90.49 Acquired absence of other specified parts of digestive tract; Z98.890 Other specified postprocedural states; Z11.59 Encounter for screening for other viral diseases
CPT/HCPCS: 36415; 52332; 74018; 74420; 80053; 81001; 85025; 85610; 85730; C1758; C1769; C2617; J0690; J1100; J1170; J2175; J2250; J2704; J3010; J7030; Q9967; U0003; 76000

== ENCOUNTER 2019-09-20 18:23 | Inpatient (IN) | payer MEDICARE, MEDICAID ==
[~2019-09-20] VITALS: Ht 165.1 cm; Wt 80.5 kg
[2019-09-20] MEDS: SODIUM CHLORIDE 0.9% 1,000 ML IV SCH (02:30)
[~2019-09-20 18:23] MED LIST changes: +ASPI-404 PO; -ASPI-543 PO; -SUCR1TAB22 PO; +SUCR1TAB38 PO
[2019-09-20 19:44] LABS: Basophils # (auto) 0.1 10 ^3/uL (0-0.2); Basophils % (auto) 1.2 % (0.0-2.0); Eosinophils # (auto) 0.1 10 ^3/uL (0-0.8); Eosinophils % (auto) 1.7 % (0.0-7.0); Hematocrit 44.2 % (41.0-53.0); Hemoglobin 14.5 g/dL (13.5-17.5); Lymphocytes # (auto) 1.8 10 ^3/uL (0.4-5.4); Lymphocytes % (auto) 31.6 % (10.0-50.0); Mean Corpuscular Hemoglobin 29.8 pg (28.0-32.0); Mean Corpuscular Hgb Conc. 32.8 g/dL (32.0-36.0); Mean Corpuscular Volume 90.9 fL (80.0-100.0); Monocytes # (auto) 0.7 10 ^3/uL (0-1.3); Monocytes % (auto) 11.2 % (0.0-12.0); Neutrophils # (auto) 3.2 10 ^3/uL (1.6-8.6); Neutrophils % (auto) 54.3 % (37.0-80.0); Nucleated Red Blood Cells % 0.1 %; Platelet Count (auto) 269 10^3/uL (140-450); Red Blood Cells 4.87 10^6/uL (4.5-5.90); Red Cell Distribution Width 14.6 % (11.8-14.3); White Blood Cell 5.9 10^3/uL (4.4-10.8)
[2019-09-20 20:01] LABS: Albumin 3.9 g/dL (3.4-5.0); Potassium 3.5 mmol/L (3.5-5.1)
[2019-09-20 20:05] LABS: BUN/Creatinine Ratio 18.8; Bilirubin, Total 0.4 mg/dL (0.2-1.0); Total Protein 7.8 g/dL (6.4-8.2)
[2019-09-20 20:30] LABS: Urine Bacteria NONE SEEN /hpf (None Seen); Urine Blood 3+ /uL (Negative); Urine Mucus FEW (None Seen); Urine Specific Gravity 1.026 (1.001-1.035); Urine WBC 134 /hpf (0 - 3)
[2019-09-20] MEDS ORDERED: SODIUM CHLORIDE 0.9% 1,000 ML IV ONE (20:42)
[2019-09-20] MEDS ORDERED: MORPHINE SULFATE 4 MG/ML SYR/VIAL IV ONE (20:45)
[2019-09-20] MEDS ORDERED: KETOROLAC TROMETH 30 MG/ML 1ML VIAL IV ONE (20:45)
[2019-09-20] MEDS ORDERED: ONDANSETRON HCL 4 MG/2 ML VIAL IV ONE (20:45)
[2019-09-20] MEDS ORDERED: levoFLOXacin 500MG 100 ML IV ONE (21:15)
[2019-09-20] MEDS ORDERED: LACTULOSE 20Gm/30ML SOLN PO PRN (21:45)
[2019-09-20] MEDS ORDERED: LORazepam 0.5 MG TAB PO PRN (21:45)
[2019-09-20] MEDS ORDERED: ACETAMINOPHEN 325 MG TAB PO PRN (21:45)
[2019-09-20] MEDS: SUCRALFATE 1 GM TAB PO SCH (22:00)
[2019-09-20] MEDS ORDERED: cefTRIAXone 1GM/50ML D5W 50 ML IV SCH (22:00)
[2019-09-21] VITALS (7 sets, daily range): BP systolic 99–133; BP diastolic 65–88
--- NOTE | 2019-09-21 01:36 | NUR ---
Opening Shift Note MS admit from RYANNE SCHMITT admitted to tele/MS after SBAR received. Patient oriented to Eyad ackerman RN, unit, room, bed, and unit policies regarding patient care and visiting hours. Patient weighed by bedscale and encouraged to call if they need something. All questions and concerns addressed, patient verbalized understanding.
[2019-09-21] MEDS: GABAPENTIN 400 MG CAP PO SCH ×4 (02:38→22:01)
[2019-09-21] MEDS: HYDROcodone-ACET 5/325MG TAB PO PRN ×2 (05:30→20:33)
[2019-09-21] MEDS: SUCRALFATE 1 GM TAB PO SCH ×4 (05:37→22:01)
[2019-09-21 06:40] LABS: Basophils # (auto) 0.1 10 ^3/uL (0-0.2); Basophils % (auto) 0.9 % (0.0-2.0); Eosinophils # (auto) 0.1 10 ^3/uL (0-0.8); Eosinophils % (auto) 1.3 % (0.0-7.0); Hematocrit 40.4 % (41.0-53.0); Lymphocytes # (auto) 2.3 10 ^3/uL (0.4-5.4); Lymphocytes % (auto) 31.3 % (10.0-50.0); Mean Corpuscular Hemoglobin 29.3 pg (28.0-32.0); Mean Corpuscular Hgb Conc. 32.2 g/dL (32.0-36.0); Monocytes # (auto) 0.8 10 ^3/uL (0-1.3); Monocytes % (auto) 11.1 % (0.0-12.0); Neutrophils % (auto) 55.4 % (37.0-80.0); Nucleated Red Blood Cells % 0.1 %; Platelet Count (auto) 254 10^3/uL (140-450); Red Blood Cells 4.44 10^6/uL (4.5-5.90); Red Cell Distribution Width 14.7 % (11.8-14.3); White Blood Cell 7.2 10^3/uL (4.4-10.8)
[2019-09-21 07:03] LABS: Calcium 8.6 mg/dL (8.5-10.1); Potassium 3.5 mmol/L (3.5-5.1)
[2019-09-21 07:05] LABS: BUN/Creatinine Ratio 19.3
[2019-09-21] MEDS: MORPHINE SULF INJ 2 MG/ML SYRINGE 1ML IV PRN ×4 (08:32→22:02)
[2019-09-21] MEDS: ONDANSETRON HCL 4 MG/2 ML VIAL IV PRN ×2 (08:33→13:00)
--- NOTE | 2019-09-21 11:30 | NUR ---
urine output in urinal 300cc dark lazaro.
[2019-09-21] MEDS: TAMSULOSIN HYDROCHLORIDE 0.4 MG CAP PO SCH (11:52)
[2019-09-21] MEDS: PANTOPRAZOLE 40 MG TAB PO SCH (11:52)
[2019-09-21] MEDS: ASPirin-EC 81 mg tab PO SCH (11:52)
--- NOTE | 2019-09-21 13:30 | NUR ---
DR BUI BEDSIDE. NEW ORDER FOR TOPICAL LIDOCAINE FOR DRAKE CATHETER INSERTION.
[2019-09-21] MEDS: SODIUM CHLORIDE 0.9% 1,000 ML IV SCH (14:23)
[2019-09-21] MEDS ORDERED: MORPHINE SULF INJ 2 MG/ML SYRINGE 1ML IV ONE (15:45)
[2019-09-21] MEDS ORDERED: LIDOCAINE HCL 5 % TOP OINT 35 GM TOP ONE (15:45)
[2019-09-21] MEDS: ATORVASTATIN 20 MG TAB PO SCH (17:20)
--- NOTE | 2019-09-21 19:00 | NUR ---
Opening Shift Note Assumed care of patient, awake and alert. No S/S of distress/SOB or pain. Instructed on POC and to call for assist PRN, will continue to monitor for changes Q1hr and PRN.
[2019-09-21] MEDS: TEMAZEPAM 15 MG CAP PO PRN (23:19)
[2019-09-22] MEDS: MORPHINE SULF INJ 2 MG/ML SYRINGE 1ML IV PRN ×5 (02:55→21:34)
[2019-09-22 05:14] VITALS: BP 111/62
[2019-09-22] MEDS: GABAPENTIN 400 MG CAP PO SCH ×3 (05:50→21:37)
[2019-09-22] MEDS: SUCRALFATE 1 GM TAB PO SCH ×4 (05:50→21:37)
[2019-09-22 05:56] LABS: Basophils # (auto) 0.1 10 ^3/uL (0-0.2); Basophils % (auto) 0.9 % (0.0-2.0); Eosinophils # (auto) 0.2 10 ^3/uL (0-0.8); Eosinophils % (auto) 2.5 % (0.0-7.0); Hematocrit 38.9 % (41.0-53.0); Hemoglobin 12.8 g/dL (13.5-17.5); Lymphocytes # (auto) 2.4 10 ^3/uL (0.4-5.4); Lymphocytes % (auto) 39.2 % (10.0-50.0); Mean Corpuscular Hemoglobin 29.9 pg (28.0-32.0); Mean Corpuscular Hgb Conc. 32.9 g/dL (32.0-36.0); Monocytes # (auto) 0.6 10 ^3/uL (0-1.3); Monocytes % (auto) 9.6 % (0.0-12.0); Neutrophils % (auto) 47.8 % (37.0-80.0); Nucleated Red Blood Cells % 0.1 %; Platelet Count (auto) 248 10^3/uL (140-450); Red Blood Cells 4.28 10^6/uL (4.5-5.90); Red Cell Distribution Width 14.7 % (11.8-14.3); White Blood Cell 6.2 10^3/uL (4.4-10.8)
[2019-09-22 06:12] LABS: Potassium 3.5 mmol/L (3.5-5.1)
[2019-09-22 06:19] LABS: BUN/Creatinine Ratio 18.8; Calcium 8.1 mg/dL (8.5-10.1)
[2019-09-22] MEDS: SODIUM CHLORIDE 0.9% 1,000 ML IV SCH ×2 (07:03→23:43)
--- NOTE | 2019-09-22 08:00 | NUR ---
PT TAKEN TO KIDNEY SCAN
[2019-09-22] MEDS ORDERED: FUROSEMIDE 40 MG/4 ML VIAL IV ONE (08:15)
[2019-09-22 09:00] VITALS: BP 113/74
--- NOTE | 2019-09-22 09:09 | NUR ---
PT BACK FROM SCAN
[2019-09-22] MEDS: TAMSULOSIN HYDROCHLORIDE 0.4 MG CAP PO SCH (09:17)
[2019-09-22] MEDS: HYDROcodone-ACET 5/325MG TAB PO PRN ×3 (09:18→23:56)
[2019-09-22] MEDS: PANTOPRAZOLE 40 MG TAB PO SCH (09:18)
[2019-09-22] MEDS: ASPirin-EC 81 mg tab PO SCH (09:18)
--- NOTE | 2019-09-22 11:00 | NUR ---
md mackay rounded on patient
[2019-09-22] MEDS ORDERED: cefTRIAXone 1GM/50ML D5W 50 ML IV ONE (11:45)
[2019-09-22 12:37] VITALS: BP 91/67
[2019-09-22] MEDS: ATORVASTATIN 20 MG TAB PO SCH (16:54)
[2019-09-22 16:55] VITALS: BP 109/85
[2019-09-22 22:00] VITALS: BP 110/76
[2019-09-23] MEDS: TEMAZEPAM 15 MG CAP PO PRN ×2 (00:27→23:45)
[2019-09-23 05:00] VITALS: BP 104/63
[2019-09-23] MEDS: MORPHINE SULF INJ 2 MG/ML SYRINGE 1ML IV PRN ×4 (05:16→22:22)
[2019-09-23] MEDS: GABAPENTIN 400 MG CAP PO SCH ×3 (05:44→22:20)
[2019-09-23] MEDS: SUCRALFATE 1 GM TAB PO SCH ×4 (05:44→22:20)
[2019-09-23 06:34] LABS: Basophils # (auto) 0.1 10 ^3/uL (0-0.2); Basophils % (auto) 0.9 % (0.0-2.0); Eosinophils # (auto) 0.2 10 ^3/uL (0-0.8); Eosinophils % (auto) 2.7 % (0.0-7.0); Hematocrit 41.1 % (41.0-53.0); Hemoglobin 13.6 g/dL (13.5-17.5); Lymphocytes # (auto) 2.4 10 ^3/uL (0.4-5.4); Mean Corpuscular Hemoglobin 30.1 pg (28.0-32.0); Monocytes # (auto) 0.6 10 ^3/uL (0-1.3); Monocytes % (auto) 8.4 % (0.0-12.0); Neutrophils # (auto) 4.3 10 ^3/uL (1.6-8.6); Nucleated Red Blood Cells % 0.2 %; Platelet Count (auto) 259 10^3/uL (140-450); Red Blood Cells 4.52 10^6/uL (4.5-5.90); Red Cell Distribution Width 14.9 % (11.8-14.3); White Blood Cell 7.6 10^3/uL (4.4-10.8)
[2019-09-23 06:59] LABS: Potassium 3.5 mmol/L (3.5-5.1)
[2019-09-23 07:19] LABS: BUN/Creatinine Ratio 15.5; Calcium 8.6 mg/dL (8.5-10.1)
--- NOTE | 2019-09-23 07:45 | NUR ---
Received patient alert and oriented x4, not in distress, clear lung sounds in bilateral lung lobes, RR= 18 Sat=97% Heart R=82, deep breathing and coughing encouraged, verbalized understanding, denied chest pain, abdomen soft and active in 4 quadrants, lat BM=09/20/19 as reported, Schafer cath in place and patent, draining clear yellow urine, general skin intact warm to touch, resting on bed, head of bed elevated, bed on low position, rails up x2, call light on reach, will continue monitoring.
[2019-09-23 08:40] VITALS: BP 112/85
[2019-09-23] MEDS: cefTRIAXone 1GM/50ML D5W 50 ML IV SCH (08:56)
[2019-09-23] MEDS: TAMSULOSIN HYDROCHLORIDE 0.4 MG CAP PO SCH (08:57)
[2019-09-23] MEDS: ASPirin-EC 81 mg tab PO SCH (08:57)
[2019-09-23] MEDS: PANTOPRAZOLE 40 MG TAB PO SCH (08:57)
[2019-09-23] MEDS: HYDROcodone-ACET 5/325MG TAB PO PRN ×2 (08:57→16:29)
[2019-09-23] MEDS: ONDANSETRON HCL 4 MG/2 ML VIAL IV PRN ×3 (11:21→22:21)
[2019-09-23] MEDS ORDERED: LACTULOSE 20Gm/30ML SOLN PO PRN ×2 (11:30→11:45)
[2019-09-23 12:29] VITALS: BP 125/84
--- NOTE | 2019-09-23 16:00 | NUR ---
C/O CONSTIPATION X4 DAYS, LACTULOSE PO PRN WAS GIVEN ORDERED, AFTER ONE HOUR LARGE BROWN CONSISTENT BM NOTED REPORTED.
[2019-09-23 16:32] VITALS: BP 134/86
[2019-09-23] MEDS: SODIUM CHLORIDE 0.9% 1,000 ML IV SCH (18:03)
[2019-09-23] MEDS: ATORVASTATIN 20 MG TAB PO SCH (18:04)
--- NOTE | 2019-09-23 19:30 | NUR ---
NOT IN DISTRESS, RESTING ON BED, REPORT WAS GIVEN TO THE ELECTRONIC INSTALLER RN.
--- NOTE | 2019-09-23 20:00 | NUR ---
Opening Shift Note Assumed care of patient, awake and alert. No S/S of distress/SOB. Pain 5/10 to left flank radiating to pelvis. [place] draining dark pink tinged urine. Pt. stated pus was coming out around houston. Minimal green secretions noted on sheet. Pt given rebecca-wipes to clean houston. Instructed on POC and to call for assist PRN, will continue to monitor for changes Q1hr and PRN. Signed: 09/23/19 at 2044 by LILY COLON <Co-Signature Required> Co-Signed: 09/23/19 at 2044 by Debbie Bateman RN RN
[2019-09-23 22:00] VITALS: BP 138/90
[2019-09-24] MEDS: MORPHINE SULF INJ 2 MG/ML SYRINGE 1ML IV PRN ×5 (04:38→21:33)
[2019-09-24] MEDS: SUCRALFATE 1 GM TAB PO SCH ×4 (05:59→21:36)
[2019-09-24] MEDS: GABAPENTIN 400 MG CAP PO SCH ×3 (05:59→21:36)
[2019-09-24 06:07] LABS: Basophils # (auto) 0.1 10 ^3/uL (0-0.2); Basophils % (auto) 1.2 % (0.0-2.0); Eosinophils # (auto) 0.2 10 ^3/uL (0-0.8); Eosinophils % (auto) 2.5 % (0.0-7.0); Hematocrit 41.8 % (41.0-53.0); Hemoglobin 13.8 g/dL (13.5-17.5); Lymphocytes # (auto) 2.1 10 ^3/uL (0.4-5.4); Lymphocytes % (auto) 29.6 % (10.0-50.0); Mean Corpuscular Hemoglobin 29.8 pg (28.0-32.0); Mean Corpuscular Hgb Conc. 33.1 g/dL (32.0-36.0); Mean Corpuscular Volume 90.1 fL (80.0-100.0); Monocytes # (auto) 0.6 10 ^3/uL (0-1.3); Monocytes % (auto) 8.3 % (0.0-12.0); Neutrophils # (auto) 4.1 10 ^3/uL (1.6-8.6); Neutrophils % (auto) 58.4 % (37.0-80.0); Nucleated Red Blood Cells % 0.1 %; Platelet Count (auto) 253 10^3/uL (140-450); Red Blood Cells 4.64 10^6/uL (4.5-5.90); Red Cell Distribution Width 14.6 % (11.8-14.3)
[2019-09-24 06:33] LABS: Calcium 8.6 mg/dL (8.5-10.1); Potassium 3.6 mmol/L (3.5-5.1)
[2019-09-24 06:35] LABS: BUN/Creatinine Ratio 15.4
[2019-09-24 08:00] VITALS: BP 113/74
[2019-09-24] MEDS: ONDANSETRON HCL 4 MG/2 ML VIAL IV PRN ×3 (08:47→17:12)
[2019-09-24 09:00] VITALS: BP 113/74
[2019-09-24] MEDS: TAMSULOSIN HYDROCHLORIDE 0.4 MG CAP PO SCH (09:28)
[2019-09-24] MEDS: ASPirin-EC 81 mg tab PO SCH (09:28)
[2019-09-24] MEDS: PANTOPRAZOLE 40 MG TAB PO SCH (09:28)
[2019-09-24] MEDS: cefTRIAXone 1GM/50ML D5W 50 ML IV SCH (09:29)
--- NOTE | 2019-09-24 10:40 | NUR ---
Opening Shift Note Assumed care of patient, awake and alert. Patient in 09/17 pain on left flank side. Instructed on POC and to call for assist PRN, will continue to monitor for changes Q1hr and PRN. Addendum: 09/24/19 at 1137 by KAYLYNN LEMON RN RN Change opening shift note to 0825
[2019-09-24 13:00] VITALS: BP 111/75
--- NOTE | 2019-09-24 13:15 | NUR ---
DR Le PEREZ AT BEDSIDE
--- NOTE | 2019-09-24 13:45 | NUR ---
URINE SPECIMEN COLLECTED Addendum: 09/24/19 at 1620 by KAYLYNN LEMON RN RN TIME ADJUSTED TO [id number]
--- NOTE | 2019-09-24 14:19 | NUR ---
Est energy needs 2701-0548 kcal (20-25 kcal/kg BW 81.6kg) Est protein needs 66-82g (0.8-1g/kg BW 81.6kg) will reassess prn Addendum: 09/24/19 at [address] Amended: Links added.
[2019-09-24] MEDS: SODIUM CHLORIDE 0.9% 1,000 ML IV SCH (14:42)
[2019-09-24 17:00] VITALS: BP 121/71
[2019-09-24] MEDS: ATORVASTATIN 20 MG TAB PO SCH (17:11)
--- NOTE | 2019-09-24 19:20 | NUR ---
Opening Shift Note Assumed care of patient, awake and alert. No S/S of distress/SOB or pain. Instructed on POC and to call for assistance PRN, will continue to monitor for changes Q1hr and PRN. Safety precautions maintained bed is in lowest position and locked, bed rails 2x. Call light and bedside table are within reach.
[2019-09-24 22:00] VITALS: BP 115/88
[2019-09-24] MEDS: HYDROcodone-ACET 5/325MG TAB PO PRN (22:43)
[2019-09-24] MEDS: TEMAZEPAM 15 MG CAP PO PRN (23:43)
[2019-09-25] MEDS: ONDANSETRON HCL 4 MG/2 ML VIAL IV PRN ×2 (01:43→06:52)
[2019-09-25] MEDS: MORPHINE SULF INJ 2 MG/ML SYRINGE 1ML IV PRN ×5 (01:43→21:52)
[2019-09-25] MEDS: SODIUM CHLORIDE 0.9% 1,000 ML IV SCH ×2 (01:57→18:23)
[2019-09-25] MEDS: HYDROcodone-ACET 5/325MG TAB PO PRN ×5 (03:43→23:27)
[2019-09-25 05:00] VITALS: BP 100/74
[2019-09-25] MEDS: SUCRALFATE 1 GM TAB PO SCH ×4 (05:16→21:14)
[2019-09-25] MEDS: GABAPENTIN 400 MG CAP PO SCH ×3 (05:16→21:14)
--- NOTE | 2019-09-25 07:10 | NUR ---
Opening Shift Note: Assumed care of patient, awake and alert. No S/S of distress/SOB. Patient states left flank pain 5/10 at this time. Bed in lowest locked position, side rails up x 2, call light within reach. Patient instructed on POC and to call for assist PRN, will continue to monitor for changes Q1hr and PRN.
--- NOTE | 2019-09-25 07:22 | NUR ---
End of Shift Note Endorsed care to dayshift RN. At this time patient has no s/s of distress or SOB, no complaints.
[2019-09-25 08:55] VITALS: BP 114/75
[2019-09-25] MEDS: cefTRIAXone 1GM/50ML D5W 50 ML IV SCH (09:01)
[2019-09-25] MEDS: TAMSULOSIN HYDROCHLORIDE 0.4 MG CAP PO SCH (09:01)
[2019-09-25] MEDS: ASPirin-EC 81 mg tab PO SCH (09:01)
[2019-09-25] MEDS: PANTOPRAZOLE 40 MG TAB PO SCH (09:01)
--- NOTE | 2019-09-25 10:11 | NUR ---
DR. JEROME: Dr. Tavarez at bedside, discussed POC with patient. Patient verbally agreed. Will continue to monitor.
[2019-09-25 13:00] VITALS: BP 105/69
--- NOTE | 2019-09-25 14:28 | NUR ---
assessment Patient is a 53 year old male who is alert and oriented. Patients cognitive abilities are intact. Prior to admission patient lived home with family and functioned with assistance. Per patient he will return home to his prior living arrangements post discharge and family will transport him home. Patient has a cane and fww for home use. Patient informed me his PCP is Dr Aden. Patient informed me he cane to ER for left side pain and was admitted for hydronephrosis. Patient has no post discharge needs at this time. I informed patient he has a right to speak to a manager social regarding all care. I informed patient he has a right to participate in any and all discharge planning. Patient does not have a POA and advanced directive. I have offered patient information on POA and advanced directives. I informed the patient the advantages and benefits of having an Advanced Directive. Patient verbalized understanding and agreed to discharge plan. Addendum: 09/25/19 at 1432 by Lalitha KELSEY Amended: Links added.
[2019-09-25 17:00] VITALS: BP 141/85
[2019-09-25] MEDS: ATORVASTATIN 20 MG TAB PO SCH (17:37)
--- NOTE | 2019-09-25 18:50 | NUR ---
CLOSING NOTE: Patient resting in bed. No S/S of distress. Care endorsed to NOC RN.
[2019-09-25] MEDS: TEMAZEPAM 15 MG CAP PO PRN (21:52)
[2019-09-26] MEDS: MORPHINE SULF INJ 2 MG/ML SYRINGE 1ML IV PRN ×2 (01:57→06:05)
[2019-09-26] MEDS: HYDROcodone-ACET 5/325MG TAB PO PRN ×3 (03:51→13:23)
[2019-09-26 05:47] VITALS: BP 137/98
[2019-09-26] MEDS: GABAPENTIN 400 MG CAP PO SCH (06:05)
[2019-09-26] MEDS: SUCRALFATE 1 GM TAB PO SCH ×2 (06:05→13:23)
--- NOTE | 2019-09-26 07:30 | NUR ---
Opening Shift Note Assumed care of patient, awake and alert. No S/S of distress/SOB or pain. Instructed on POC and to call for assist PRN, will continue to monitor for changes Q1hr and PRN. Bed is locked and in lowest position. Call light within reach.
[2019-09-26 08:00] VITALS: BP 157/87
[2019-09-26] MEDS: SODIUM CHLORIDE 0.9% 1,000 ML IV SCH (08:55)
[2019-09-26] MEDS: cefTRIAXone 1GM/50ML D5W 50 ML IV SCH (08:55)
--- NOTE | 2019-09-26 09:30 | NUR ---
DR. GRANT BURNS AT BEDSIDE. PATIENT IS TO BE DISCHARGED WITH DRAKE, WILL FOLLOW UP WITH DR. THAPA IN TEN DAYS. PRESCRIPTIONS WILL BE GIVEN TO PATIENT. DOCTOR ORDERS WILL BE CARRIED OUT.
[2019-09-26] MEDS: TAMSULOSIN HYDROCHLORIDE 0.4 MG CAP PO SCH (10:52)
[2019-09-26] MEDS: ASPirin-EC 81 mg tab PO SCH (10:53)
[2019-09-26] MEDS: PANTOPRAZOLE 40 MG TAB PO SCH (10:53)
--- NOTE | 2019-09-26 16:35 | NUR ---
DRAKE A TOTAL OF 2,150 ML OF URINE EMPTIED FROM DRAKE. LIGHT ORDAZ URINE, CLOUDY AND SMALL AMOUNT SEDIMENT.
[2019-09-26 16:44] VITALS: BP 109/69
--- NOTE | 2019-09-26 17:40 | NUR ---
Discharge instructions given as ordered. Encourage to follow up with PMD as instructed. All questions and concerns addressed. Patient verbalized understanding. IV removed with catheter intact, pressure dressing applied. Patient discharged with houston per doctors orders. Home care education given, patient verbalized understanding. Patient taken to vehicle via wheelchair with all personal belongings, accompanied by staff and family member. No distress noted at time of departure.
== END 2019-09-26 15:50 | disposition home or self-care (01) | DRG 690 ==
LOC: ER 18:23 → OVERFLOW 18:24 → WEST WING 09-21 01:35
PROVIDERS: ADMIT Hospitalist; ATTEND Family Medicine
DX: N13.6 Pyonephrosis (principal); E78.5 Hyperlipidemia, unspecified; M19.90 Unspecified osteoarthritis, unspecified site; E66.01 Morbid (severe) obesity due to excess calories; Z82.49 Family history of ischemic heart disease and other diseases of the circulatory system; Z83.3 Family history of diabetes mellitus; Z87.442 Personal history of urinary calculi; Z90.49 Acquired absence of other specified parts of digestive tract; Z68.29 Body mass index [BMI] 29.0-29.9, adult; Y83.8 Other surgical procedures as the cause of abnormal reaction of the patient, or of later complication, without mention of misadventure at the time of the procedure
CPT/HCPCS: 36415; 74176; 78707; 80048; 80053; 80061; 81001; 84443; 85025; 85610; 87081; 87086; G0378; J0696; J1885; J1956; J2405

== ENCOUNTER 2019-10-29 07:51 | Inpatient (IN) | payer MEDICARE, MEDICAID ==
[~2019-10-29] VITALS: Ht 167.6 cm; Wt 7.0 kg
[~2019-10-29 07:51] MED LIST changes: -ASPI-404 PO; +ASPI-543 PO; +SUCR1TAB22 PO; -SUCR1TAB38 PO
[2019-10-29] MEDS ORDERED: ONDANSETRON HCL 4 MG/2 ML VIAL IV ONE (08:00)
[2019-10-29] MEDS ORDERED: SODIUM CHLORIDE 0.9% 1,000 ML IV ONE ×3 (08:00→14:30)
[2019-10-29] MEDS ORDERED: ACETAMINOPHEN 500 MG TAB PO ONE ×2 (08:15→08:48)
[2019-10-29] MEDS ORDERED: cefTRIAXone 1GM/50ML D5W 50 ML IV ONE (09:00)
[2019-10-29 09:07] LABS: Basophils # (auto) 0.1 10 ^3/uL (0-0.2); Basophils % (auto) 0.3 % (0.0-2.0); Eosinophils # (auto) 0 10 ^3/uL (0-0.8); Hematocrit 39.2 % (41.0-53.0); Hemoglobin 12.7 g/dL (13.5-17.5); Lymphocytes # (auto) 0.9 10 ^3/uL (0.4-5.4); Lymphocytes % (auto) 3.3 % (10.0-50.0); Mean Corpuscular Hemoglobin 29.2 pg (28.0-32.0); Mean Corpuscular Hgb Conc. 32.5 g/dL (32.0-36.0); Mean Corpuscular Volume 89.9 fL (80.0-100.0); Monocytes # (auto) 0.9 10 ^3/uL (0-1.3); Monocytes % (auto) 3.4 % (0.0-12.0); Neutrophils # (auto) 24.4 10 ^3/uL (1.6-8.6); Platelet Count (auto) 247 10^3/uL (140-450); Red Blood Cells 4.36 10^6/uL (4.5-5.90); Red Cell Distribution Width 14.5 % (11.8-14.3); White Blood Cell 26.2 10^3/uL (4.4-10.8)
[2019-10-29 09:12] LABS: Urine Bacteria MANY /hpf (None Seen); Urine Blood 3+ /uL (Negative); Urine Mucus FEW (None Seen); Urine Specific Gravity 1.019 (1.001-1.035); Urine WBC 943 /hpf (0 - 3); Urine WBC Clumps PRESENT /hpf (None Seen)
[2019-10-29 09:27] LABS: Alanine Aminotransferase 16 U/L (16-61); Albumin 3.1 g/dL (3.4-5.0); Anion Gap 10 (5-15); Aspartate Aminotransferase 14 U/L (15-37); BUN/Creatinine Ratio 13.9; Blood Urea Nitrogen 19 mg/dL (7-18); Calcium 8.5 mg/dL (8.5-10.1); Carbon Dioxide 21 mmol/L (21-32); Chloride 103 mmol/L (98-107); GFR African American 69 mL/min; GFR Non-African American 57 mL/min; Glucose 133 mg/dL (74-106); Potassium 3.2 mmol/L (3.5-5.1); Sodium 134 mmol/L (136-145)
[2019-10-29 09:31] LABS: Alkaline Phosphatase 102 U/L (45-117); Bilirubin, Total 0.6 mg/dL (0.2-1.0); Total Protein 7.1 g/dL (6.4-8.2)
[2019-10-29] MEDS ORDERED: SODIUM CHLORIDE 0.9% 1,000 ML IV SCH (10:10)
[2019-10-29] MEDS ORDERED: ACETAMINOPHEN 500 MG TAB PO PRN (10:15)
[2019-10-29] MEDS ORDERED: MORPHINE SULF INJ 2 MG/ML SYRINGE 1ML IV PRN (10:15)
[2019-10-29] MEDS ORDERED: DEXTROSE (50%) 50ML SYRG IV PRN (10:15)
[2019-10-29] MEDS ORDERED: HYDROcodone-ACET 5/325MG TAB PO PRN (10:15)
[2019-10-29] MEDS ORDERED: POTASSIUM EFFERVESENT TAB 25 MEQ PO ONE (10:15)
[2019-10-29] MEDS ORDERED: FLUCONAZOLE 200MG/100ML 100 ML IV ONE (10:15)
[2019-10-29] MEDS ORDERED: NITROGLYCERIN 0.4 MG SL TAB SL PRN (10:15)
[2019-10-29 10:23] LABS: Lactate Dehydrogenase 225 U/L (87-241)
[2019-10-29 10:41] LABS: CRP High Sensitivity > 19.0 mg/dL (< 0.3)
[2019-10-29] MEDS ORDERED: LACTULOSE 20Gm/30ML SOLN PO PRN ×2 (10:45→11:00)
[2019-10-29] MEDS: SUCRALFATE 1 GM TAB PO SCH ×3 (11:58→22:42)
[2019-10-29] MEDS: ACCU-CHEK COMFORT CURVE STRIP VI SCH ×3 (11:58→22:00)
[2019-10-29] MEDS: FAMOTIDINE (10MG/ML) 2ML VL IV SCH ×2 (11:58→22:43)
[2019-10-29] MEDS: OXYCODONE W/ ACETAMINOPHEN 5/325MG TABLET PO SCH ×2 (11:59→18:53)
[2019-10-29] MEDS ORDERED: PIPERACILLIN-TAZOB 3.375GM 100 ML IV ONE (12:00)
[2019-10-29] MEDS: MORPHINE SULF INJ 2 MG/ML SYRINGE 1ML IV PRN ×2 (12:38→19:45)
[2019-10-29] MEDS: GABAPENTIN 400 MG CAP PO SCH ×2 (12:38→22:42)
[2019-10-29] MEDS: PROMETHAZINE HCL 25 MG/ML 1ML IV PRN (12:39)
[2019-10-29] MEDS ORDERED: PIPERACILLIN-TAZOB 3.375GM 100 ML IV SCH (14:00)
[2019-10-29] MEDS ORDERED: OXYCODONE W/ ACETAMINOPHEN 5/325MG TABLET PO SCH (14:00)
[2019-10-29] MEDS: SODIUM CHLORIDE 0.9% 1,000 ML IV SCH ×2 (14:36→21:10)
--- NOTE | 2019-10-29 18:25 | NUR ---
Telemetry admit from RYANNE SCHMITT admitted to Telemetry unit after SBAR received. Patient oriented to RYANNE PEACOCK RN primary RN, unit, room, bed, and unit policies regarding patient care and visiting hours. Patient now on continuous telemetry monitoring, tele box # 75 and telemetry reading on arrival to unit is SINUS RHYTHM. Patient placed on bedside oxygen, weighed by bedscale and encouraged to call if they need something. All questions and concerns addressed, patient verbalized understanding. Note:
[2019-10-29 18:30] VITALS: BP 150/71
[2019-10-29] MEDS: TAMSULOSIN HYDROCHLORIDE 0.4 MG CAP PO SCH (18:53)
[2019-10-29] MEDS: PIPERACILLIN-TAZOB 3.375GM 100 ML IV SCH ×2 (18:53→23:59)
--- NOTE | 2019-10-29 19:45 | NUR ---
Opening Shift Note Assumed care of patient, awake and alert. No S/S of distress/SOB noted. Instructed on POC and to call for assist PRN. Bed is in lowest locked position with bed rails up x2 and call light is within reach of the patient.
[2019-10-29 21:26] VITALS: BP 94/62
[2019-10-29] MEDS: ATORVASTATIN 20 MG TAB PO SCH (22:42)
[2019-10-29] MEDS: TEMAZEPAM 15 MG CAP PO PRN (22:43)
--- NOTE | 2019-10-29 22:45 | NUR ---
Temperature recheck: REAL ESTATE TEACHER's temperature check of the patient was 100 oral. Temperature reassessed as 99.5 at this time. Continue to monitor.
--- NOTE | 2019-10-30 01:55 | NUR ---
TEMPERATURE PATIENT HAS TEMP OF 101.8, COOLING MEASURES IN PLACE AT THIS TIME. WILL CONTINUE TO MONITOR.
[2019-10-30] MEDS: MORPHINE SULF INJ 2 MG/ML SYRINGE 1ML IV PRN ×4 (02:12→19:48)
--- NOTE | 2019-10-30 03:09 | NUR ---
Temperature reassessed: Patients temperature reassessed as 99.7. Coming down from previous temperature. Continue cooling measures.
[2019-10-30] MEDS: SODIUM CHLORIDE 0.9% 1,000 ML IV SCH ×3 (03:50→17:08)
--- NOTE | 2019-10-30 04:44 | NUR ---
Temperature reassessed: Patients temperature reassessed as 99.4. Temperature improving. Left patient with only a sheet to prevent temperature spike.
[2019-10-30 05:10] VITALS: BP 101/60
[2019-10-30] MEDS: GABAPENTIN 400 MG CAP PO SCH ×3 (05:30→21:36)
[2019-10-30] MEDS: PIPERACILLIN-TAZOB 3.375GM 100 ML IV SCH ×3 (05:32→17:09)
[2019-10-30] MEDS: OXYCODONE W/ ACETAMINOPHEN 5/325MG TABLET PO SCH ×4 (05:36→17:10)
--- NOTE | 2019-10-30 05:37 | NUR ---
PERCOCET HELD: Scheduled Percocet medication held due to patient already receiving 2475 mg of Acetaminophen in 24 hours. Max dose of Acetaminophen is 3250mg in 24 hours. Educated the patient that medication will be held and reasoning for hold. Patient verbalized understanding. Will medicate with other prn pain medication.
[2019-10-30 06:04] LABS: Basophils # (auto) 0 10 ^3/uL (0-0.2); Basophils % (auto) 0.2 % (0.0-2.0); Eosinophils # (auto) 0 10 ^3/uL (0-0.8); Eosinophils % (auto) 0.2 % (0.0-7.0); Hematocrit 34.3 % (41.0-53.0); Hemoglobin 11.4 g/dL (13.5-17.5); Lymphocytes # (auto) 1.5 10 ^3/uL (0.4-5.4); Lymphocytes % (auto) 9.3 % (10.0-50.0); Mean Corpuscular Hemoglobin 29.6 pg (28.0-32.0); Mean Corpuscular Hgb Conc. 33.1 g/dL (32.0-36.0); Mean Corpuscular Volume 89.3 fL (80.0-100.0); Monocytes % (auto) 6.5 % (0.0-12.0); Neutrophils # (auto) 13.4 10 ^3/uL (1.6-8.6); Neutrophils % (auto) 83.8 % (37.0-80.0); Platelet Count (auto) 236 10^3/uL (140-450); Red Blood Cells 3.84 10^6/uL (4.5-5.90); Red Cell Distribution Width 14.1 % (11.8-14.3)
[2019-10-30] MEDS: SUCRALFATE 1 GM TAB PO SCH ×4 (06:24→21:36)
[2019-10-30] MEDS: ACCU-CHEK COMFORT CURVE STRIP VI SCH ×4 (06:25→21:37)
[2019-10-30 06:26] LABS: Potassium 3.3 mmol/L (3.5-5.1)
[2019-10-30 06:33] LABS: Albumin 2.5 g/dL (3.4-5.0); BUN/Creatinine Ratio 10.8; Bilirubin, Total 0.6 mg/dL (0.2-1.0); Calcium 7.4 mg/dL (8.5-10.1)
[2019-10-30 08:00] VITALS: BP 108/70
[2019-10-30] MEDS: FLUCONAZOLE 200MG/100ML 100 ML IV SCH (09:29)
[2019-10-30] MEDS: FAMOTIDINE (10MG/ML) 2ML VL IV SCH ×2 (09:29→21:36)
[2019-10-30] MEDS: ASPirin-EC 81 mg tab PO SCH (09:29)
[2019-10-30] MEDS ORDERED: PANTOPRAZOLE 40 MG TAB PO SCH (10:00)
[2019-10-30] MEDS: PROMETHAZINE HCL 25 MG/ML 1ML IV PRN (12:56)
[2019-10-30 13:00] VITALS: BP 126/78
--- NOTE | 2019-10-30 13:45 | NUR ---
Received orders from Dr. Pace to change houston catheter and send new sample of urine culture. Will continue care.
--- NOTE | 2019-10-30 14:04 | NUR ---
Patient refused houston catheter change and requested if it can be done on Saturday for procedure. Patient stated that the whole process of houston catheter removal and change is very painful. Called and spoke with Dr. Pace about this and instructions received to keep the houston catheter for now and will take care of it this coming Saturday.
[2019-10-30 17:00] VITALS: BP 117/67
[2019-10-30] MEDS: TAMSULOSIN HYDROCHLORIDE 0.4 MG CAP PO SCH (17:09)
--- NOTE | 2019-10-30 20:36 | NUR ---
Received phone call from sister of patient Maegan Maerez. Advised patient I need password or verbal consent from pt to discuss anything with her. pt has no password set up. Spoke to pt Eddie and he provided verbal consent to give information to Maegan. When I came back, phones are not working and unable to speak to maegan. no phone number for maegan listed. Notified pt of situation, and patient advised he will speak to Maegan. pt did not want to set up password. Will continue to monitor patient.
[2019-10-30] MEDS: ATORVASTATIN 20 MG TAB PO SCH (21:36)
[2019-10-30] MEDS: TEMAZEPAM 15 MG CAP PO PRN (21:42)
[2019-10-30 22:00] VITALS: BP 114/76
--- NOTE | 2019-10-30 22:09 | NUR ---
PT sister Radha called back and voiced concern of when patient is at home, patient takes 10 oxycodone per day and is requesting for some labs to be done, thinks patient is addicted to pain meds and have the MD aware. Spoke to Nusrat SOLIZ Hospitalist and notified of patient sister Concerns. MD Silverio provided no new orders. patient Sister requested to have MD on dayshift call her and give update. Sister information is Radha phone number is [phone]. Radha provided information of what the patient takes at home: oxycodone 5/325 mg from pain managment [id number]. Patient refused to set up password Addendum: 10/31/19 at 0100 by Christopher Mendes RN person who prescribed the medication to patient is adal shaikh from pain management. Patient did give verbal consent to give information to Radha Lazo.
[2019-10-31] MEDS: OXYCODONE W/ ACETAMINOPHEN 5/325MG TABLET PO SCH ×5 (00:03→23:33)
[2019-10-31] MEDS: PIPERACILLIN-TAZOB 3.375GM 100 ML IV SCH ×5 (00:04→23:33)
[2019-10-31] MEDS: SODIUM CHLORIDE 0.9% 1,000 ML IV SCH ×4 (00:04→17:45)
[2019-10-31] MEDS ORDERED: PERCOT PO (00:58)
[2019-10-31 05:00] VITALS: BP 122/75
[2019-10-31] MEDS: GABAPENTIN 400 MG CAP PO SCH ×3 (05:45→21:35)
[2019-10-31] MEDS: SUCRALFATE 1 GM TAB PO SCH ×4 (06:49→21:35)
[2019-10-31] MEDS: ACCU-CHEK COMFORT CURVE STRIP VI SCH ×4 (06:49→21:35)
--- NOTE | 2019-10-31 07:30 | NUR ---
Opening Note Received report from gravure press operator RN. Patient is resting in bed, no signs or symptoms of distress noted at this time. Patient is on room air, respirations even and unlabored. Patient complains of generalized pain 7/10 and is requesting medications. Reviewed plan of care with patient, patient verbalized understanding. Bed in low and locked position, call light within reach. Will continue to monitor Q1 hour and PRN.
[2019-10-31 09:00] VITALS: BP 102/70
[2019-10-31] MEDS: FAMOTIDINE (10MG/ML) 2ML VL IV SCH ×2 (09:07→21:36)
[2019-10-31] MEDS: MORPHINE SULF INJ 2 MG/ML SYRINGE 1ML IV PRN ×3 (09:07→21:36)
[2019-10-31] MEDS: FLUCONAZOLE 200MG/100ML 100 ML IV SCH (09:07)
[2019-10-31] MEDS: ASPirin-EC 81 mg tab PO SCH (09:07)
--- NOTE | 2019-10-31 09:10 | NUR ---
Dr. Le Tavarez at bedside MD discussing plan of care with patient and this RN. Will continue to monitor Q1 hour and PRN.
--- NOTE | 2019-10-31 09:10 | NUR ---
Pain Patient complains of pain to "kidneys and bladder." Patient is requesting morphine. Will medicate per orders. Will continue to monitor Q1 hour and PRN.
--- NOTE | 2019-10-31 09:40 | NUR ---
Pain reassessment Patient continues to complain of generalized pain 4/10. Patient resting in bed, no signs or symptoms of distress noted at this time. Will continue to monitor Q1 hour and PRN.
[2019-10-31 10:36] LABS: INR 0.99 (0.9-1.15); Partial Thromboplastin Time 29.2 sec (23.0-31.2)
[2019-10-31] MEDS: MUPIROCIN 2% OINT 15gm or 22gm EACHNOSTRI SCH ×2 (11:26→21:35)
[2019-10-31 13:00] VITALS: BP 145/95
[2019-10-31 17:00] VITALS: BP 139/80
[2019-10-31] MEDS: TAMSULOSIN HYDROCHLORIDE 0.4 MG CAP PO SCH (17:44)
--- NOTE | 2019-10-31 19:08 | NUR ---
Closing Note Report given to night time nanny RN. No signs or symptoms of distress noted at this time.
--- NOTE | 2019-10-31 19:45 | NUR ---
assumed care, pt. awake, no c/o pain, no sob.
[2019-10-31] MEDS: ATORVASTATIN 20 MG TAB PO SCH (21:35)
[2019-10-31 22:00] VITALS: BP 135/82
[2019-10-31] MEDS: TEMAZEPAM 15 MG CAP PO PRN (22:36)
[2019-11-01] MEDS: SODIUM CHLORIDE 0.9% 1,000 ML IV SCH ×4 (02:30→22:30)
[2019-11-01] MEDS: MORPHINE SULF INJ 2 MG/ML SYRINGE 1ML IV PRN ×4 (03:40→20:33)
[2019-11-01 05:00] VITALS: BP 132/80
[2019-11-01] MEDS: PIPERACILLIN-TAZOB 3.375GM 100 ML IV SCH ×4 (05:30→23:30)
[2019-11-01] MEDS: OXYCODONE W/ ACETAMINOPHEN 5/325MG TABLET PO SCH ×4 (05:33→23:30)
[2019-11-01] MEDS: GABAPENTIN 400 MG CAP PO SCH ×3 (05:34→22:05)
[2019-11-01] MEDS: SUCRALFATE 1 GM TAB PO SCH ×4 (06:01→22:05)
[2019-11-01] MEDS: ACCU-CHEK COMFORT CURVE STRIP VI SCH ×4 (06:01→22:06)
[2019-11-01 07:02] LABS: Basophils # (auto) 0.1 10 ^3/uL (0-0.2); Basophils % (auto) 0.6 % (0.0-2.0); Eosinophils # (auto) 0.1 10 ^3/uL (0-0.8); Eosinophils % (auto) 1.2 % (0.0-7.0); Hemoglobin 11.7 g/dL (13.5-17.5); Lymphocytes # (auto) 1.5 10 ^3/uL (0.4-5.4); Lymphocytes % (auto) 18.1 % (10.0-50.0); Mean Corpuscular Hemoglobin 30.3 pg (28.0-32.0); Mean Corpuscular Hgb Conc. 34.3 g/dL (32.0-36.0); Mean Corpuscular Volume 88.3 fL (80.0-100.0); Neutrophils # (auto) 5.7 10 ^3/uL (1.6-8.6); Neutrophils % (auto) 68.1 % (37.0-80.0); Platelet Count (auto) 281 10^3/uL (140-450); Red Blood Cells 3.85 10^6/uL (4.5-5.90); Red Cell Distribution Width 14.2 % (11.8-14.3); White Blood Cell 8.4 10^3/uL (4.4-10.8)
--- NOTE | 2019-11-01 07:45 | NUR ---
Opening Note Received report from inspector balance truing RN. Patient is resting in bed, no signs or symptoms of distress noted at this time. Patient is on room air, respirations even and unlabored. Patient complains of generalized pain 7/10 and is requesting medications. Reviewed plan of care with patient, patient verbalized understanding. Bed in low and locked position, call light within reach. Will continue to monitor Q1 hour and PRN.
[2019-11-01] MEDS: FAMOTIDINE (10MG/ML) 2ML VL IV SCH ×2 (08:44→22:06)
[2019-11-01] MEDS: ASPirin-EC 81 mg tab PO SCH (08:44)
[2019-11-01] MEDS: FLUCONAZOLE 200MG/100ML 100 ML IV SCH (08:44)
[2019-11-01] MEDS: PROMETHAZINE HCL 25 MG/ML 1ML IV PRN (08:44)
[2019-11-01] MEDS: MUPIROCIN 2% OINT 15gm or 22gm EACHNOSTRI SCH ×2 (08:45→22:05)
[2019-11-01 09:19] VITALS: BP 134/84
--- NOTE | 2019-11-01 10:14 | NUR ---
Dr. Le Tavarez at bedside MD at bedside discussing plan of care with patient and this RN. New orders received. Will implement new orders. Will continue to monitor Q1 hour and PRN.
--- NOTE | 2019-11-01 10:20 | NUR ---
Walkerid swab and urine sample collected Samples collected and walked to lab by brian FITCH
[2019-11-01 13:00] VITALS: BP 125/75
--- NOTE | 2019-11-01 13:55 | NUR ---
Nutrition Assessment Est energy needs 4202-5221 kcal (20-25 kcal/kg BW 83kg) est protein needs 66-83g (0.8-1g/kg BW 83kg) Will reassess prn. Addendum: 11/01/19 at [address] Amended: Links added.
--- NOTE | 2019-11-01 15:05 | NUR ---
IV Removed IV removed with clean sterile technique, catheter fully intact. Pressure dressing applied to site. Patient tolerated well. Will continue to monitor Q1 hour and PRN.
--- NOTE | 2019-11-01 15:15 | NUR ---
IV Insertion IV access obtained, via clean sterile technique by inserting 22 gauge catheter to left hand. IV secured properly. No trauma to site. Patient tolerated well. Will continue to monitor Q1 hour and PRN.
[2019-11-01 17:08] VITALS: BP 133/72
[2019-11-01] MEDS: TAMSULOSIN HYDROCHLORIDE 0.4 MG CAP PO SCH (17:51)
--- NOTE | 2019-11-01 19:02 | NUR ---
Closing Note Report given to investment executive RN. No signs or symptoms of distress noted at this time.
--- NOTE | 2019-11-01 20:00 | NUR ---
ASSUMED CARE, PT. AWAKE, NO C/O PAIN, ADVISED PT. NPO AFTER MN, FOR PROCEDURE IN AM.
[2019-11-01 22:00] VITALS: BP 129/73
[2019-11-01] MEDS: ATORVASTATIN 20 MG TAB PO SCH (22:05)
[2019-11-01] MEDS: TEMAZEPAM 15 MG CAP PO PRN (22:26)
[2019-11-02 05:00] VITALS: BP 133/72
[2019-11-02] MEDS: SODIUM CHLORIDE 0.9% 1,000 ML IV SCH ×3 (05:21→17:55)
[2019-11-02] MEDS: GABAPENTIN 400 MG CAP PO SCH ×3 (05:48→22:02)
[2019-11-02] MEDS: PIPERACILLIN-TAZOB 3.375GM 100 ML IV SCH ×4 (05:48→23:59)
[2019-11-02] MEDS: SUCRALFATE 1 GM TAB PO SCH ×4 (05:49→22:02)
[2019-11-02] MEDS: OXYCODONE W/ ACETAMINOPHEN 5/325MG TABLET PO SCH ×3 (05:49→17:55)
[2019-11-02] MEDS: ACCU-CHEK COMFORT CURVE STRIP VI SCH ×4 (05:49→22:03)
[2019-11-02] MEDS: MORPHINE SULF INJ 2 MG/ML SYRINGE 1ML IV PRN ×3 (08:40→22:03)
[2019-11-02] MEDS: FLUCONAZOLE 200MG/100ML 100 ML IV SCH (08:41)
[2019-11-02 09:00] VITALS: BP 149/90
[2019-11-02] MEDS: FAMOTIDINE (10MG/ML) 2ML VL IV SCH ×2 (09:43→22:03)
[2019-11-02] MEDS: ASPirin-EC 81 mg tab PO SCH (09:43)
[2019-11-02] MEDS: MUPIROCIN 2% OINT 15gm or 22gm EACHNOSTRI SCH ×2 (09:58→22:02)
[2019-11-02] MEDS: PROMETHAZINE HCL 25 MG/ML 1ML IV PRN ×3 (11:00→20:10)
[2019-11-02] MEDS ORDERED: IOHEXOL 300 MG/ML 100ML BOTTLE IJ ONE (12:58)
--- NOTE | 2019-11-02 13:00 | NUR ---
Patient out of room for 1300 vitals.-EW
[2019-11-02] MEDS ORDERED: ceFAZolin 1GM/50ML 50 ML IV ONE (13:08)
[2019-11-02] MEDS ORDERED: MIDAZOLAM HCL 1MG/1ML-2 ML VIAL ONE (13:42)
[2019-11-02] MEDS ORDERED: fentaNYL CITRATE 100 MCG/2 ML VL ONE (13:42)
[2019-11-02] MEDS ORDERED: MIDAZOLAM HCL 1MG/1ML-2 ML VIAL IV PRN (13:45)
[2019-11-02] MEDS ORDERED: HYDROmorphone HCL 2 MG/ML VL IV PRN (13:45)
[2019-11-02] MEDS ORDERED: ONDANSETRON HCL 4 MG/2 ML VIAL IV PRN (13:45)
[2019-11-02] MEDS ORDERED: MORPHINE SULFATE 4 MG/ML SYR/VIAL IV PRN (13:45)
[2019-11-02] MEDS ORDERED: LABETALOL HCL 5 MG/ML 4ML SYRINGE IV PRN (13:45)
[2019-11-02] MEDS ORDERED: ePHEDrine SULFATE 50 MG/ML AMP IV PRN (13:45)
[2019-11-02] MEDS ORDERED: PROPOFOL 10 MG/ML 20 ML IV ONE (13:46)
[2019-11-02] MEDS ORDERED: DexAMETHasone SOD PHOS 10MG/1ML VIAL INJ ONE (13:46)
[2019-11-02] MEDS ORDERED: MEPERIDINE HCL (25 MG/ML) 1ML VIAL ONE (13:46)
[2019-11-02] MEDS ORDERED: MANNITOL FTV 25% 12.5 GM/50 ML 50 ML IV ONE (14:15)
--- NOTE | 2019-11-02 16:31 | NUR ---
PT OFF FLOOR FOR CYSTOSCOPY, RETURNED TO FLOOR APPROX. 1430. A/O X 4. MONITORING CLOSELY.
[2019-11-02 17:00] VITALS: BP 137/88
[2019-11-02] MEDS: TAMSULOSIN HYDROCHLORIDE 0.4 MG CAP PO SCH (17:55)
[2019-11-02 21:20] VITALS: BP 133/87
[2019-11-02] MEDS: ATORVASTATIN 20 MG TAB PO SCH (22:02)
[2019-11-02] MEDS: TEMAZEPAM 15 MG CAP PO PRN (23:59)
[2019-11-03] MEDS: OXYCODONE W/ ACETAMINOPHEN 5/325MG TABLET PO SCH ×3 (00:35→12:00)
[2019-11-03] MEDS: SODIUM CHLORIDE 0.9% 1,000 ML IV SCH ×2 (01:37→07:50)
[2019-11-03 05:00] VITALS: BP 148/89
[2019-11-03] MEDS: MORPHINE SULF INJ 2 MG/ML SYRINGE 1ML IV PRN ×2 (05:19→09:31)
[2019-11-03] MEDS: PIPERACILLIN-TAZOB 3.375GM 100 ML IV SCH ×2 (06:35→12:00)
[2019-11-03] MEDS: GABAPENTIN 400 MG CAP PO SCH ×2 (06:35→13:39)
[2019-11-03] MEDS: ACCU-CHEK COMFORT CURVE STRIP VI SCH ×2 (06:36→11:30)
[2019-11-03] MEDS: SUCRALFATE 1 GM TAB PO SCH ×2 (06:36→11:30)
[2019-11-03 08:00] VITALS: BP 145/95
[2019-11-03 09:00] VITALS: BP 113/79
[2019-11-03] MEDS: PROMETHAZINE HCL 25 MG/ML 1ML IV PRN ×2 (09:29→13:36)
[2019-11-03] MEDS: ASPirin-EC 81 mg tab PO SCH (09:29)
[2019-11-03] MEDS: FAMOTIDINE (10MG/ML) 2ML VL IV SCH (09:29)
--- NOTE | 2019-11-03 09:31 | NUR ---
pain patient c/o pain, left flank, rates it 8/10. Will medicate per MD orders.
[2019-11-03] MEDS: FLUCONAZOLE 200MG/100ML 100 ML IV SCH (10:00)
[2019-11-03] MEDS: MUPIROCIN 2% OINT 15gm or 22gm EACHNOSTRI SCH (10:00)
--- NOTE | 2019-11-03 11:05 | NUR ---
called Jose technical support 1 software engineer to get patient for MRCP stat, per Dr. Tavarez. Markus
[2019-11-03 12:54] VITALS: BP 121/77
[2019-11-03 13:39] VITALS: BP 121/77
--- NOTE | 2019-11-03 16:16 | NUR ---
Discharge instructions given as ordered. Encourage to follow up with PMD as instructed. All questions and concerns addressed. Patient verbalized understanding. Medication reconciliation form completed and copy given to patient. IV removed with catheter intact, pressure dressing applied.Telemetry unit returned to ICU. Patient taken to vehicle via wheelchair with all personal belongings, accompanied by this nurse. No distress noted at time of departure.
[2019-11-03 16:59] VITALS: BP 139/98
== END 2019-11-03 16:25 | disposition home or self-care (01) | DRG 872 ==
LOC: ER 07:51 → TELE 07:52 → TELE-WESTW 18:32
PROVIDERS: ADMIT Internal Medicine; ATTEND Family Medicine
PROC: BT1F1ZZ Fluoroscopy of Left Kidney, Ureter and Bladder using Low Osmolar Contrast (ICD-10-PCS; 2019-11-02)
PROC: 0TP98DZ Removal of Intraluminal Device from Ureter, Via Natural or Artificial Opening Endoscopic (ICD-10-PCS; principal; 2019-11-02 13:25)
DX: A41.9 Sepsis, unspecified organism (principal); N17.9 Acute kidney failure, unspecified; E87.1 Hypo-osmolality and hyponatremia; N13.6 Pyonephrosis; E86.0 Dehydration; E87.6 Hypokalemia; I10 Essential (primary) hypertension; Z20.828 Contact with and (suspected) exposure to other viral communicable diseases; K57.90 Diverticulosis of intestine, part unspecified, without perforation or abscess without bleeding; H91.90 Unspecified hearing loss, unspecified ear; E78.00 Pure hypercholesterolemia, unspecified; Z90.49 Acquired absence of other specified parts of digestive tract; Z87.442 Personal history of urinary calculi; A49.02 Methicillin resistant Staphylococcus aureus infection, unspecified site; F12.90 Cannabis use, unspecified, uncomplicated; Z83.3 Family history of diabetes mellitus; Z82.49 Family history of ischemic heart disease and other diseases of the circulatory system; E78.5 Hyperlipidemia, unspecified
CPT/HCPCS: 36415; 71045; 74176; 80053; 81001; 82728; 82962; 83036; 83605; 83615; 84484; 85025; 85610; 85652; 85730; 86141; 87040; 87081; 87086; 87426; 96365; 96366; 96367; 96368; G0378; J0690; J0696; J1100; J1450; J2250; J2405; J2543; J2704; J3490

== ENCOUNTER 2019-11-06 18:59 | Emergency (ER) | payer MEDICARE, MEDICAID ==
[~2019-11-06] VITALS: Ht 165.1 cm; Wt 83.9 kg
[2019-11-06 20:29] LABS: Urine Bacteria NONE SEEN /hpf (None Seen); Urine Blood Negative /uL (Negative); Urine Mucus FEW (None Seen); Urine Specific Gravity 1.018 (1.001-1.035); Urine WBC 3 /hpf (0 - 3)
[2019-11-06 20:54] LABS: Basophils # (auto) 0.1 10 ^3/uL (0-0.2); Eosinophils # (auto) 0.1 10 ^3/uL (0-0.8); Eosinophils % (auto) 0.8 % (0.0-7.0); Hemoglobin 13.9 g/dL (13.5-17.5); Lymphocytes # (auto) 2.6 10 ^3/uL (0.4-5.4); Lymphocytes % (auto) 29.4 % (10.0-50.0); Mean Corpuscular Hemoglobin 29.6 pg (28.0-32.0); Mean Corpuscular Hgb Conc. 33.2 g/dL (32.0-36.0); Mean Corpuscular Volume 89.1 fL (80.0-100.0); Monocytes # (auto) 0.5 10 ^3/uL (0-1.3); Monocytes % (auto) 6.1 % (0.0-12.0); Neutrophils # (auto) 5.5 10 ^3/uL (1.6-8.6); Neutrophils % (auto) 62.7 % (37.0-80.0); Platelet Count (auto) 593 10^3/uL (140-450); Red Blood Cells 4.71 10^6/uL (4.5-5.90); Red Cell Distribution Width 14.7 % (11.8-14.3); White Blood Cell 8.8 10^3/uL (4.4-10.8)
[2019-11-06 21:09] LABS: Alanine Aminotransferase 78 U/L (16-61); Albumin 3.3 g/dL (3.4-5.0); Amylase 82 U/L (25-115); Anion Gap 6 (5-15); Aspartate Aminotransferase 26 U/L (15-37); BUN/Creatinine Ratio 15.5; Blood Urea Nitrogen 13 mg/dL (7-18); Calcium 8.9 mg/dL (8.5-10.1); Carbon Dioxide 26 mmol/L (21-32); Chloride 108 mmol/L (98-107); GFR African American 122 mL/min; GFR Non-African American 100 mL/min; Glucose 90 mg/dL (74-106); Lipase 109 U/L (73-393); Magnesium 2.4 mg/dL (1.6-2.6); Potassium 3.5 mmol/L (3.5-5.1); Sodium 140 mmol/L (136-145)
[2019-11-06 21:15] LABS: Alkaline Phosphatase 182 U/L (45-117); Bilirubin, Total 0.3 mg/dL (0.2-1.0); Total Protein 7.8 g/dL (6.4-8.2)
[2019-11-07] MEDS ORDERED: diphenhdrAMINE HCL 50 MG/1 ML VL IV ONE (00:30)
[2019-11-07] MEDS ORDERED: ONDANSETRON HCL 4 MG/2 ML VIAL IV ONE ×2 (00:30→03:15)
[2019-11-07 03:00] VITALS: BP 113/84
[2019-11-07] MEDS ORDERED: MORPHINE SULFATE 4 MG/ML SYR/VIAL IV ONE (03:15)
== END 2019-11-07 04:06 | disposition home or self-care (01) ==
LOC: ER 18:59
DX: G89.29 Other chronic pain (principal); N20.0 Calculus of kidney; E78.5 Hyperlipidemia, unspecified; Z79.82 Long term (current) use of aspirin; Z79.899 Other long term (current) drug therapy
CPT/HCPCS: 36415; 74176; 80053; 81001; 82150; 83605; 83690; 83735; 84484; 85025; 96374; 96375; 96376; 99285; J1200; J2270; J2405; 90471; 93005

== ENCOUNTER → 2019-12-16 | Outpatient (CLI) | payer MEDICARE, MEDICAID ==
[2019-12-16 11:22] LABS: Basophils # (auto) 0.1 10 ^3/uL (0-0.2); Basophils % (auto) 2.2 % (0.0-2.0); Eosinophils # (auto) 0.2 10 ^3/uL (0-0.8); Eosinophils % (auto) 4.4 % (0.0-7.0); Hematocrit 42.3 % (41.0-53.0); Hemoglobin 13.9 g/dL (13.5-17.5); Lymphocytes # (auto) 1.6 10 ^3/uL (0.4-5.4); Lymphocytes % (auto) 34.7 % (10.0-50.0); Mean Corpuscular Hemoglobin 30.1 pg (28.0-32.0); Mean Corpuscular Hgb Conc. 32.8 g/dL (32.0-36.0); Mean Corpuscular Volume 91.6 fL (80.0-100.0); Monocytes # (auto) 0.4 10 ^3/uL (0-1.3); Monocytes % (auto) 8.3 % (0.0-12.0); Neutrophils # (auto) 2.3 10 ^3/uL (1.6-8.6); Neutrophils % (auto) 50.4 % (37.0-80.0); Nucleated Red Blood Cells % 0.1 %; Platelet Count (auto) 282 10^3/uL (140-450); Red Blood Cells 4.61 10^6/uL (4.5-5.90); Red Cell Distribution Width 15.8 % (11.8-14.3); White Blood Cell 4.5 10^3/uL (4.4-10.8)
[2019-12-16 11:33] LABS: Urine Bacteria NONE SEEN /hpf (None Seen); Urine Blood Negative /uL (Negative); Urine Mucus FEW (None Seen); Urine Specific Gravity 1.019 (1.001-1.035); Urine WBC <1 /hpf (0 - 3)
[2019-12-16 11:49] LABS: Albumin 3.9 g/dL (3.4-5.0); Calcium 8.6 mg/dL (8.5-10.1); Potassium 4.1 mmol/L (3.5-5.1)
[2019-12-16 11:52] LABS: BUN/Creatinine Ratio 13.4; Bilirubin, Total 0.3 mg/dL (0.2-1.0); Total Protein 7.2 g/dL (6.4-8.2)
== END | disposition home or self-care (01) ==
LOC: LAB 10:59
PROVIDERS: ATTEND Urology
DX: Z01.812 Encounter for preprocedural laboratory examination (principal); Z12.11 Encounter for screening for malignant neoplasm of colon; N13.30 Unspecified hydronephrosis; N18.30 Chronic kidney disease, stage 3 unspecified; R73.03 Prediabetes
CPT/HCPCS: 36415; 80053; 81001; 85025

== ENCOUNTER → 2019-12-19 | Outpatient (CLI) | payer MEDICARE, MEDICAID | END | disposition home or self-care (01) | LOC: LAB 10:10 | PROVIDERS: ATTEND Urology | DX: N13.30 Unspecified hydronephrosis (principal) | CPT/HCPCS: 36415; 82565; 84132; 84520 ==

== ENCOUNTER → 2019-12-21 | Outpatient (CLI) | payer MEDICARE, MEDICAID ==
[~2019-12-21] VITALS: Ht 30.5 cm; Wt 0.5 kg
[~2019-12-21] MED LIST changes: +FUROSEMIDE 40 MG/4 ML VIAL IV ONE
== END | disposition home or self-care (01) ==
LOC: XY 07:35
PROVIDERS: ATTEND Urology
DX: N13.30 Unspecified hydronephrosis (principal)
CPT/HCPCS: 78707; A9562; J1940

== ENCOUNTER 2020-04-19 15:48 | Emergency (ER) | payer OTHER, MEDICAID ==
[~2020-04-19] VITALS: Ht 165.1 cm; Wt 79.4 kg
[~2020-04-19 15:48] MED LIST changes: -FUROSEMIDE 40 MG/4 ML VIAL IV ONE
[2020-04-19 16:43] VITALS: BP 149/98
== END 2020-04-19 17:55 | disposition home or self-care (01) ==
LOC: ER 15:48
DX: J06.9 Acute upper respiratory infection, unspecified (principal); Z20.822 Contact with and (suspected) exposure to COVID-19
CPT/HCPCS: 36415; 71045; 87426; 99284; C9803; U0003

== ENCOUNTER → 2020-06-30 | Day surgery (SDC) | payer OTHER, MEDICAID ==
[~2020-06-30] VITALS: Ht 165.1 cm; Wt 79.4 kg
[~2020-06-30] MED LIST changes: +HYDROmorphone HCL 2 MG/ML VL IV PRN; +IOHEXOL 300 MG/ML 100ML BOTTLE IJ ONE; -LACT10SO3 PO; +LIDOCAINE 2% (LOCAL ANESTH.) PF 5ml SDV ONE; +MIDAZOLAM HCL 1MG/1ML-2 ML VIAL ONE; +ONDANSETRON HCL 4 MG/2 ML VIAL IV PRN; +ONDANSETRON HCL 4 MG/2 ML VIAL ONE; +PROPOFOL 10 MG/ML 20 ML IV ONE; +SUCCINYLCHOLINE CHLORIDE 20 MG/ML 10ML VIAL IV ONE; -SUCR1TAB22 PO; +ceFAZolin 1GM/50ML 50 ML IV ONE; +fentaNYL CITRATE 100 MCG/2 ML VL ONE
[2020-06-30 10:09] VITALS: BP 117/72
== END | disposition home or self-care (01) ==
LOC: SUR 06:55
PROVIDERS: ATTEND Urology
DX: N13.39 Other hydronephrosis (principal); I25.10 Atherosclerotic heart disease of native coronary artery without angina pectoris; K21.9 Gastro-esophageal reflux disease without esophagitis; Z20.822 Contact with and (suspected) exposure to COVID-19; Z98.890 Other specified postprocedural states; Z86.73 Personal history of transient ischemic attack (TIA), and cerebral infarction without residual deficits; Z79.899 Other long term (current) drug therapy; Z87.891 Personal history of nicotine dependence
CPT/HCPCS: 52332; C1758; C2617; J0330; J0690; J1170; J2001; J2250; J2405; J2704; J3010; Q9967; U0003; 74420

== ENCOUNTER 2020-07-28 20:00 | Inpatient (IN) | payer OTHER, MEDICAID ==
[~2020-07-28] VITALS: Ht 165.1 cm; Wt 81.6 kg
[~2020-07-28 20:00] MED LIST changes: -HYDROmorphone HCL 2 MG/ML VL ONE; -IOHEXOL 300 MG/ML 100ML BOTTLE IJ ONE; -LIDOCAINE 2% (LOCAL ANESTH.) PF 5ml SDV ONE; -MIDAZOLAM HCL 1MG/1ML-2 ML VIAL ONE; -ONDANSETRON HCL 4 MG/2 ML VIAL IV PRN; -ONDANSETRON HCL 4 MG/2 ML VIAL ONE; -PROPOFOL 10 MG/ML 20 ML IV ONE; -ROCURONIUM 10MG/ML 10ML VIAL IV ONE; -SUCCINYLCHOLINE CHLORIDE 20 MG/ML 10ML VIAL IV ONE; -ceFAZolin 1GM/50ML 100 ML IV ONE; -fentaNYL CITRATE 100 MCG/2 ML VL ONE
[2020-07-28 20:43] LABS: Basophils # (auto) 0.1 10 ^3/uL (0-0.2); Basophils % (auto) 0.6 % (0.0-2.0); Eosinophils # (auto) 0 10 ^3/uL (0-0.8); Eosinophils % (auto) 0.1 % (0.0-7.0); Hematocrit 41.6 % (41.0-53.0); Hemoglobin 14.2 g/dL (13.5-17.5); Lymphocytes # (auto) 1.2 10 ^3/uL (0.4-5.4); Lymphocytes % (auto) 6.8 % (10.0-50.0); Mean Corpuscular Hemoglobin 31.3 pg (28.0-32.0); Mean Corpuscular Hgb Conc. 34.1 g/dL (32.0-36.0); Mean Corpuscular Volume 91.7 fL (80.0-100.0); Monocytes # (auto) 0.8 10 ^3/uL (0-1.3); Monocytes % (auto) 4.6 % (0.0-12.0); Neutrophils # (auto) 15.5 10 ^3/uL (1.6-8.6); Neutrophils % (auto) 87.9 % (37.0-80.0); Nucleated Red Blood Cells % 0.1 %; Platelet Count (auto) 387 10^3/uL (140-450); Red Blood Cells 4.54 10^6/uL (4.5-5.90); Red Cell Distribution Width 13.8 % (11.8-14.3); White Blood Cell 17.6 10^3/uL (4.4-10.8)
[2020-07-28] MEDS ORDERED: ONDANSETRON HCL 4 MG/2 ML VIAL IV ONE (20:45)
[2020-07-28] MEDS ORDERED: MORPHINE SULFATE 4 MG/ML SYR/VIAL IV ONE (20:45)
[2020-07-28 20:59] LABS: Albumin 4.3 g/dL (3.4-5.0); Calcium 9.4 mg/dL (8.5-10.1); Potassium 3.4 mmol/L (3.5-5.1)
[2020-07-28 21:02] LABS: Lactic Acid w/Reflex 2.5 mmol/L (0.4-2.0)
[2020-07-28 21:03] LABS: BUN/Creatinine Ratio 13.1; Bilirubin, Total 0.4 mg/dL (0.2-1.0); Total Protein 7.8 g/dL (6.4-8.2)
[2020-07-28 21:07] LABS: Urine Bacteria NONE SEEN /hpf (None Seen); Urine Blood 3+ /uL (Negative); Urine WBC 23 /hpf (0 - 3)
[2020-07-28 21:11] LABS: Urine Specific Gravity 1.015 (1.001-1.035)
[2020-07-28] MEDS ORDERED: HYDROmorphone HCL 2 MG/ML VL IV ONE (21:15)
[2020-07-28] MEDS ORDERED: SODIUM CHLORIDE 0.9% 1,000 ML IV ONE (21:15)
[2020-07-29] MEDS ORDERED: HYDROmorphone HCL 2 MG/ML VL IV ONE ×2 (00:30→04:15)
[2020-07-29] MEDS ORDERED: cefTRIAXone 1GM/50ML D5W 50 ML IV ONE (03:00)
[2020-07-29] MEDS ORDERED: DOCUSATE SOD 100 MG CAP PO PRN (07:00)
[2020-07-29] MEDS ORDERED: NITROGLYCERIN 0.4 MG SL TAB SL PRN (07:00)
[2020-07-29] MEDS ORDERED: DEXTROSE (50%) 50ML SYRG IV PRN (07:00)
[2020-07-29] MEDS ORDERED: ACCU-CHEK COMFORT CURVE STRIP VI SCH (07:00)
[2020-07-29] MEDS ORDERED: SODIUM CHLORIDE 0.9% 1,000 ML IV SCH (07:00)
[2020-07-29] MEDS ORDERED: ACETAMINOPHEN 325 MG TAB PO PRN (07:00)
[2020-07-29] MEDS ORDERED: VANCOMYCIN PER PHARMACY 0 MG IV SCH (07:00)
[2020-07-29] MEDS ORDERED: HYDROcodone-ACET 5/325MG TAB PO PRN (07:00)
[2020-07-29] MEDS ORDERED: MORPHINE SULF INJ 2 MG/ML SYRINGE 1ML IV PRN (07:00)
[2020-07-29] MEDS ORDERED: ONDANSETRON HCL 4 MG/2 ML VIAL IV PRN (07:00)
[2020-07-29] MEDS ORDERED: MORPHINE SULFATE 4 MG/ML SYR/VIAL IV PRN (07:00)
[2020-07-29] MEDS ORDERED: InsuLIN REG 1unit/0.01ml Soln (100units/ml) SC SCH (07:00)
[2020-07-29] MEDS ORDERED: POTASSIUM CHL 20MEQ/100ML 100 ML IV ONE (07:15)
[2020-07-29 07:27] LABS: Basophils # (auto) 0.1 10 ^3/uL (0-0.2); Basophils % (auto) 0.9 % (0.0-2.0); Eosinophils # (auto) 0 10 ^3/uL (0-0.8); Eosinophils % (auto) 0.1 % (0.0-7.0); Hematocrit 41.7 % (41.0-53.0); Lymphocytes # (auto) 2.3 10 ^3/uL (0.4-5.4); Lymphocytes % (auto) 16.5 % (10.0-50.0); Mean Corpuscular Hemoglobin 30.8 pg (28.0-32.0); Mean Corpuscular Hgb Conc. 33.6 g/dL (32.0-36.0); Mean Corpuscular Volume 91.7 fL (80.0-100.0); Monocytes # (auto) 1.2 10 ^3/uL (0-1.3); Monocytes % (auto) 8.7 % (0.0-12.0); Neutrophils # (auto) 10.2 10 ^3/uL (1.6-8.6); Neutrophils % (auto) 73.8 % (37.0-80.0); Platelet Count (auto) 358 10^3/uL (140-450); Red Blood Cells 4.55 10^6/uL (4.5-5.90); Red Cell Distribution Width 14.3 % (11.8-14.3); White Blood Cell 13.8 10^3/uL (4.4-10.8)
[2020-07-29 07:38] LABS: Calcium 8.9 mg/dL (8.5-10.1); Potassium 4.4 mmol/L (3.5-5.1)
[2020-07-29 07:42] LABS: BUN/Creatinine Ratio 11.5; Bilirubin, Total 0.4 mg/dL (0.2-1.0); Total Protein 7.8 g/dL (6.4-8.2)
[2020-07-29] MEDS ORDERED: VANCOMYCIN 1GM/250ML 250 ML IV SCH (08:00)
[2020-07-29 09:30] VITALS: BP 107/71
[2020-07-29] MEDS ORDERED: MULTIPLE VITAMIN TAB PO SCH (10:00)
[2020-07-29] MEDS ORDERED: ASCORBIC ACID 500 MG TAB PO SCH (10:00)
[2020-07-29] MEDS ORDERED: ZINC SULFATE 220mg CAP or TAB PO SCH (10:00)
[2020-07-29] MEDS ORDERED: FAMOTIDINE 20 MG TAB PO SCH (10:00)
[2020-07-30] MEDS ORDERED: cefTRIAXone 1GM/50ML D5W 50 ML IV SCH (09:00)
== END 2020-07-29 10:43 | disposition left against medical advice (07) | DRG 872 ==
LOC: ER 20:10 → TELE 07-29 07:00
PROVIDERS: ADMIT Nurse Practitioner Family; ATTEND Internal Medicine
DX: A41.9 Sepsis, unspecified organism (principal); N39.0 Urinary tract infection, site not specified; Z53.29 Procedure and treatment not carried out because of patient's decision for other reasons; Z20.822 Contact with and (suspected) exposure to COVID-19; E87.6 Hypokalemia; Z83.3 Family history of diabetes mellitus; Z82.49 Family history of ischemic heart disease and other diseases of the circulatory system; Z87.442 Personal history of urinary calculi; Z90.49 Acquired absence of other specified parts of digestive tract
CPT/HCPCS: 36415; 80053; 81001; 83605; 85025; J1170; J2270; J2405; J7030; 51702; 82962; 83036; 87086; 87426; 96365; 96367; 96375; 96376; G0378; J0696; J3480

== ENCOUNTER → 2020-07-28 | Day surgery (SDC) | payer OTHER, MEDICAID ==
[~2020-07-28] VITALS: Ht 165.1 cm; Wt 81.6 kg
[~2020-07-28] MED LIST changes: +CHOL20007 PO; +DICY10CA PO; +DIPH2.5T73 PO; -HYDROmorphone HCL 2 MG/ML VL IV PRN; +HYDROmorphone HCL 2 MG/ML VL ONE; +IBUP600T27 PO; +NALO4SPR2; +ONDA-144 PO; +ROCURONIUM 10MG/ML 10ML VIAL IV ONE; +SENN-58 PO; +SUCR1TAB22 PO; +ceFAZolin 1GM/50ML 100 ML IV ONE; -ceFAZolin 1GM/50ML 50 ML IV ONE
[2020-07-28] MEDS: HYDROmorphone HCL 2 MG/ML VL IV PRN ×4 (15:58→16:40)
[2020-07-28 16:55] VITALS: BP 141/71
== END | disposition home or self-care (01) ==
LOC: SUR 10:25
PROVIDERS: ATTEND Urology
DX: N13.30 Unspecified hydronephrosis (principal); N13.5 Crossing vessel and stricture of ureter without hydronephrosis; K21.9 Gastro-esophageal reflux disease without esophagitis; F17.200 Nicotine dependence, unspecified, uncomplicated; Z20.822 Contact with and (suspected) exposure to COVID-19; Z98.890 Other specified postprocedural states; Z79.899 Other long term (current) drug therapy
CPT/HCPCS: 52332; 52344; 74018; 88300; C1726; C2617; J0330; J0690; J1170; J2001; J2250; J2405; J2704; J3010; Q9967; U0003; 74420; 76000

== ENCOUNTER 2020-08-14 14:43 | Emergency (ER) | payer OTHER, MEDICAID ==
[~2020-08-14] VITALS: Ht 165.1 cm; Wt 81.6 kg
[2020-08-14] MEDS ORDERED: HYDROcodone-ACET 10/325MG TAB PO ONE (16:15)
[2020-08-14 17:07] LABS: Basophils # (auto) 0.1 10 ^3/uL (0-0.2); Basophils % (auto) 1.1 % (0.0-2.0); Eosinophils # (auto) 0 10 ^3/uL (0-0.8); Eosinophils % (auto) 0.3 % (0.0-7.0); Hematocrit 42.1 % (41.0-53.0); Hemoglobin 14.3 g/dL (13.5-17.5); Lymphocytes # (auto) 1.3 10 ^3/uL (0.4-5.4); Lymphocytes % (auto) 16.6 % (10.0-50.0); Mean Corpuscular Hemoglobin 31.4 pg (28.0-32.0); Mean Corpuscular Hgb Conc. 33.9 g/dL (32.0-36.0); Mean Corpuscular Volume 92.6 fL (80.0-100.0); Monocytes # (auto) 0.4 10 ^3/uL (0-1.3); Monocytes % (auto) 5.3 % (0.0-12.0); Neutrophils # (auto) 6.1 10 ^3/uL (1.6-8.6); Neutrophils % (auto) 76.7 % (37.0-80.0); Platelet Count (auto) 346 10^3/uL (140-450); Red Blood Cells 4.55 10^6/uL (4.5-5.90); Red Cell Distribution Width 14.2 % (11.8-14.3); White Blood Cell 7.9 10^3/uL (4.4-10.8)
[2020-08-14 17:23] LABS: Albumin 4.5 g/dL (3.4-5.0); Calcium 9.8 mg/dL (8.5-10.1); Potassium 4.5 mmol/L (3.5-5.1)
[2020-08-14 17:26] LABS: BUN/Creatinine Ratio 15.5; Bilirubin, Total 0.5 mg/dL (0.2-1.0); Total Protein 8.6 g/dL (6.4-8.2)
[2020-08-14 19:25] LABS: Urine Bacteria FEW /hpf (None Seen); Urine Blood 3+ /uL (Negative); Urine Specific Gravity 1.012 (1.001-1.035); Urine WBC 45 /hpf (0 - 3)
[2020-08-14] MEDS ORDERED: cefTRIAXone W LIDOCAINE 1 GM IM IM ONE (19:30)
[2020-08-14] MEDS ORDERED: cefTRIAXone SOD 1,000 MG VL IM ONE (21:15)
[2020-08-14 21:18] VITALS: BP 128/73
== END 2020-08-14 21:28 | disposition home or self-care (01) ==
LOC: ER 14:43
DX: N39.0 Urinary tract infection, site not specified (principal); N13.30 Unspecified hydronephrosis; E78.5 Hyperlipidemia, unspecified; Z90.49 Acquired absence of other specified parts of digestive tract; Z87.442 Personal history of urinary calculi
CPT/HCPCS: 36415; 74176; 80053; 81001; 85025; 87086; 96372; 99284; J0696

== ENCOUNTER 2020-08-18 14:50 | Emergency (ER) | payer OTHER, MEDICAID ==
[~2020-08-18] VITALS: Ht 165.1 cm; Wt 81.6 kg
[2020-08-18 15:06] VITALS: BP 110/81
[2020-08-18 15:33] LABS: Urine Bacteria FEW /hpf (None Seen); Urine Blood 3+ /uL (Negative); Urine Specific Gravity 1.017 (1.001-1.035); Urine WBC 236 /hpf (0 - 3); Urine WBC Clumps PRESENT /hpf (None Seen)
[2020-08-18] MEDS ORDERED: cefTRIAXone 1GM/50ML D5W 50 ML IV ONE ×2 (16:00)
[2020-08-18] MEDS ORDERED: HYDROcodone-ACET 10/325MG TAB PO ONE (16:00)
== END 2020-08-18 16:59 | disposition home or self-care (01) ==
LOC: ER 14:50
DX: N39.0 Urinary tract infection, site not specified (principal); F12.10 Cannabis abuse, uncomplicated; E78.5 Hyperlipidemia, unspecified; Z87.442 Personal history of urinary calculi
CPT/HCPCS: 51702; 81001; 87086; 87088; 96365; 99284; J0696

== ENCOUNTER 2020-08-30 01:36 | Inpatient (IN) | payer OTHER, MEDICAID ==
[~2020-08-30] VITALS: Ht 165.1 cm; Wt 79.4 kg
[2020-08-30 02:41] LABS: Urine Bacteria FEW /hpf (None Seen); Urine Blood 3+ /uL (Negative); Urine Specific Gravity 1.016 (1.001-1.035); Urine WBC 133 /hpf (0 - 3)
[2020-08-30 03:13] LABS: Basophils # (auto) 0.1 10 ^3/uL (0-0.2); Eosinophils # (auto) 0.3 10 ^3/uL (0-0.8); Eosinophils % (auto) 3.9 % (0.0-7.0); Hematocrit 37.1 % (41.0-53.0); Hemoglobin 12.4 g/dL (13.5-17.5); Lymphocytes # (auto) 2.6 10 ^3/uL (0.4-5.4); Lymphocytes % (auto) 36.5 % (10.0-50.0); Mean Corpuscular Hemoglobin 30.5 pg (28.0-32.0); Mean Corpuscular Hgb Conc. 33.4 g/dL (32.0-36.0); Mean Corpuscular Volume 91.4 fL (80.0-100.0); Monocytes # (auto) 0.6 10 ^3/uL (0-1.3); Neutrophils # (auto) 3.5 10 ^3/uL (1.6-8.6); Neutrophils % (auto) 48.6 % (37.0-80.0); Nucleated Red Blood Cells % 0.1 %; Red Blood Cells 4.06 10^6/uL (4.5-5.90); White Blood Cell 7.2 10^3/uL (4.4-10.8)
[2020-08-30 03:16] LABS: Albumin 3.7 g/dL (3.4-5.0); BUN/Creatinine Ratio 20.2; Calcium 8.1 mg/dL (8.5-10.1); Potassium 3.8 mmol/L (3.5-5.1)
[2020-08-30 03:19] LABS: Bilirubin, Total 0.2 mg/dL (0.2-1.0); Total Protein 7.2 g/dL (6.4-8.2)
[2020-08-30] MEDS ORDERED: IOHEXOL 300 MG/ML 100ML BOTTLE IJ ONE (05:19)
[2020-08-30] MEDS ORDERED: fentaNYL CITRATE 100 MCG/2 ML VL IV ONE (06:15)
[2020-08-30] MEDS ORDERED: ONDANSETRON HCL 4 MG/2 ML VIAL IV ONE (06:15)
[2020-08-30] MEDS ORDERED: HYDROcodone-ACET 10/325MG TAB PO ONE (08:45)
[2020-08-30] MEDS: cefTRIAXone 1GM/50ML D5W 50 ML IV SCH (12:08)
[2020-08-30] MEDS ORDERED: SOD CHL 0.45% 1,000 ML IV ONE (12:15)
[2020-08-30] MEDS ORDERED: ONDANSETRON HCL 4 MG/2 ML VIAL IV PRN (12:15)
[2020-08-30] MEDS ORDERED: ACETAMINOPHEN 325 MG TAB PO PRN (12:15)
[2020-08-30] MEDS ORDERED: NITROGLYCERIN 0.4 MG SL TAB SL PRN (12:15)
[2020-08-30] MEDS: MORPHINE SULFATE INJECTION 2 MG/ML SYRG IV PRN ×3 (13:03→21:20)
[2020-08-30 14:08] VITALS: BP 113/74
[2020-08-30] MEDS: HYDROcodone-ACET 5/325MG TAB PO PRN ×3 (15:00→23:00)
[2020-08-30 18:08] LABS: Urine Bacteria NONE SEEN /hpf (None Seen); Urine Blood 3+ /uL (Negative); Urine Specific Gravity 1.011 (1.001-1.035); Urine WBC 3 /hpf (0 - 3)
[2020-08-30 22:22] VITALS: BP 100/65
[2020-08-30] MEDS ORDERED: TEMAZEPAM 15 MG CAP PO ONE (23:00)
[2020-08-31] MEDS: MORPHINE SULFATE INJECTION 2 MG/ML SYRG IV PRN (05:53)
[2020-08-31 05:55] VITALS: BP 102/61
[2020-08-31 07:01] LABS: BUN/Creatinine Ratio 17.1; Calcium 8.7 mg/dL (8.5-10.1); Magnesium 2.5 mg/dL (1.6-2.6); Potassium 4.1 mmol/L (3.5-5.1)
[2020-08-31 07:47] LABS: Basophils # (auto) 0.1 10 ^3/uL (0-0.2); Basophils % (auto) 1.1 % (0.0-2.0); Eosinophils # (auto) 0.2 10 ^3/uL (0-0.8); Eosinophils % (auto) 4.2 % (0.0-7.0); Hemoglobin 13.3 g/dL (13.5-17.5); Lymphocytes # (auto) 1.6 10 ^3/uL (0.4-5.4); Lymphocytes % (auto) 30.1 % (10.0-50.0); Mean Corpuscular Hemoglobin 30.9 pg (28.0-32.0); Mean Corpuscular Hgb Conc. 34.2 g/dL (32.0-36.0); Mean Corpuscular Volume 90.4 fL (80.0-100.0); Monocytes # (auto) 0.5 10 ^3/uL (0-1.3); Monocytes % (auto) 8.4 % (0.0-12.0); Neutrophils % (auto) 56.2 % (37.0-80.0); Nucleated Red Blood Cells % 0.1 %; Red Blood Cells 4.32 10^6/uL (4.5-5.90); Red Cell Distribution Width 13.9 % (11.8-14.3); White Blood Cell 5.4 10^3/uL (4.4-10.8)
[2020-08-31] MEDS: HYDROcodone-ACET 5/325MG TAB PO PRN (08:47)
[2020-08-31] MEDS: cefTRIAXone 1GM/50ML D5W 50 ML IV SCH (08:48)
[2020-08-31 09:00] VITALS: BP 109/74
[2020-08-31] MEDS ORDERED: HYDROcodone-ACET 10/325MG TAB PO PRN (10:30)
[2020-08-31 13:00] VITALS: BP 107/69
[2020-08-31 15:06] VITALS: BP 107/69
[2020-08-31] MEDS ORDERED: PHENAZOPYRIDINE HCL 100 MG TAB PO SCH (22:00)
[2020-08-31] MEDS ORDERED: OXYBUTYNIN CHL 5 MG TAB PO SCH (22:00)
== END 2020-08-31 17:00 | disposition home or self-care (01) | DRG 696 ==
LOC: ER 01:37 → TELE 12:02 → TELE-CENTR 14:08
PROVIDERS: ADMIT Internal Medicine; ATTEND Internal Medicine
DX: R31.0 Gross hematuria (principal); K21.9 Gastro-esophageal reflux disease without esophagitis; M17.0 Bilateral primary osteoarthritis of knee; D72.829 Elevated white blood cell count, unspecified; N13.30 Unspecified hydronephrosis; Z20.822 Contact with and (suspected) exposure to COVID-19; Z79.899 Other long term (current) drug therapy; Z82.49 Family history of ischemic heart disease and other diseases of the circulatory system; Z83.3 Family history of diabetes mellitus; Z87.442 Personal history of urinary calculi; Z87.891 Personal history of nicotine dependence; Z90.49 Acquired absence of other specified parts of digestive tract
CPT/HCPCS: 36415; 74177; 80048; 80053; 81001; 83605; 83735; 85025; 87040; 87086; 87426; 96365; 96366; 96375; 96376; G0378; J0696; J2405

== ENCOUNTER 2020-09-04 05:32 | Emergency (ER) | payer OTHER, MEDICAID ==
[~2020-09-04] VITALS: Ht 165.1 cm; Wt 81.6 kg
[2020-09-04 08:35] LABS: Urine Bacteria FEW /hpf (None Seen); Urine Blood 3+ /uL (Negative); Urine Mucus FEW (None Seen); Urine Specific Gravity 1.021 (1.001-1.035); Urine WBC 36 /hpf (0 - 3)
[2020-09-04 08:54] LABS: Basophils # (auto) 0.1 10 ^3/uL (0-0.2); Basophils % (auto) 0.9 % (0.0-2.0); Eosinophils # (auto) 0.1 10 ^3/uL (0-0.8); Eosinophils % (auto) 0.9 % (0.0-7.0); Hemoglobin 14.3 g/dL (13.5-17.5); Lymphocytes # (auto) 1.5 10 ^3/uL (0.4-5.4); Mean Corpuscular Hemoglobin 30.6 pg (28.0-32.0); Mean Corpuscular Volume 90.1 fL (80.0-100.0); Monocytes # (auto) 0.4 10 ^3/uL (0-1.3); Monocytes % (auto) 6.1 % (0.0-12.0); Neutrophils # (auto) 5.2 10 ^3/uL (1.6-8.6); Neutrophils % (auto) 71.1 % (37.0-80.0); Platelet Count (auto) 333 10^3/uL (140-450); Red Blood Cells 4.66 10^6/uL (4.5-5.90); Red Cell Distribution Width 14.1 % (11.8-14.3); White Blood Cell 7.2 10^3/uL (4.4-10.8)
[2020-09-04] MEDS ORDERED: cefTRIAXone 1GM/50ML D5W 50 ML IV ONE (09:00)
[2020-09-04 09:14] LABS: Potassium 4.1 mmol/L (3.5-5.1)
[2020-09-04 09:19] LABS: Albumin 4.1 g/dL (3.4-5.0); BUN/Creatinine Ratio 17.7; Calcium 9.6 mg/dL (8.5-10.1)
[2020-09-04 09:31] LABS: Bilirubin, Total 0.3 mg/dL (0.2-1.0)
[2020-09-04] MEDS ORDERED: MORPHINE SULFATE 4 MG/ML SYR/VIAL IV ONE (10:15)
[2020-09-04] MEDS ORDERED: ONDANSETRON HCL 4 MG/2 ML VIAL IV ONE (10:15)
[2020-09-04 11:47] VITALS: BP 124/95
== END 2020-09-04 11:46 | disposition home or self-care (01) ==
LOC: ER 05:32
DX: N39.0 Urinary tract infection, site not specified (principal); R10.2 Pelvic and perineal pain; E78.5 Hyperlipidemia, unspecified; Z79.82 Long term (current) use of aspirin; Z79.899 Other long term (current) drug therapy; Z87.442 Personal history of urinary calculi; Z90.49 Acquired absence of other specified parts of digestive tract
CPT/HCPCS: 36415; 74176; 80053; 81001; 85025; 85049; 96365; 96375; 99285; J0696; J2270; J2405

== ENCOUNTER 2020-09-16 10:31 | Emergency (ER) | payer OTHER, MEDICAID ==
[~2020-09-16] VITALS: Ht 165.1 cm; Wt 79.4 kg
[2020-09-16] MEDS ORDERED: SODIUM CHLORIDE 0.9% 500 ML IVB ONE (10:45)
[2020-09-16] MEDS ORDERED: ONDANSETRON HCL 4 MG/2 ML VIAL IV ONE (10:45)
[2020-09-16] MEDS ORDERED: MORPHINE SULFATE 4 MG/ML SYR/VIAL IV ONE (10:45)
[2020-09-16 11:02] LABS: Basophils # (auto) 0.1 10 ^3/uL (0-0.2); Basophils % (auto) 0.7 % (0.0-2.0); Eosinophils # (auto) 0.2 10 ^3/uL (0-0.8); Eosinophils % (auto) 2.4 % (0.0-7.0); Hematocrit 38.1 % (41.0-53.0); Hemoglobin 13.1 g/dL (13.5-17.5); Lymphocytes # (auto) 1.1 10 ^3/uL (0.4-5.4); Lymphocytes % (auto) 13.6 % (10.0-50.0); Mean Corpuscular Hemoglobin 31.2 pg (28.0-32.0); Mean Corpuscular Hgb Conc. 34.4 g/dL (32.0-36.0); Mean Corpuscular Volume 90.8 fL (80.0-100.0); Monocytes # (auto) 0.6 10 ^3/uL (0-1.3); Monocytes % (auto) 7.1 % (0.0-12.0); Neutrophils # (auto) 6.3 10 ^3/uL (1.6-8.6); Neutrophils % (auto) 76.2 % (37.0-80.0); Nucleated Red Blood Cells % 0.1 %; Red Blood Cells 4.19 10^6/uL (4.5-5.90); Red Cell Distribution Width 14.3 % (11.8-14.3); White Blood Cell 8.2 10^3/uL (4.4-10.8)
[2020-09-16 11:15] LABS: Albumin 4.1 g/dL (3.4-5.0); Calcium 8.9 mg/dL (8.5-10.1); Magnesium 2.2 mg/dL (1.6-2.6); Potassium 3.9 mmol/L (3.5-5.1)
[2020-09-16 11:21] LABS: BUN/Creatinine Ratio 17.7; Bilirubin, Total 0.4 mg/dL (0.2-1.0); Total Protein 7.7 g/dL (6.4-8.2)
[2020-09-16 11:32] LABS: Urine Bacteria NONE SEEN /hpf (None Seen); Urine Blood 3+ /uL (Negative); Urine Mucus FEW (None Seen); Urine Specific Gravity 1.021 (1.001-1.035); Urine WBC 101 /hpf (0 - 3)
[2020-09-16] MEDS ORDERED: levoFLOXacin 500MG 100 ML IV ONE (13:45)
[2020-09-16] MEDS ORDERED: PERCOT PO (13:54)
[2020-09-16] MEDS ORDERED: LEVO500T31 PO (13:55)
[2020-09-16] MEDS ORDERED: MORPHINE SULF INJ 2 MG/ML SYRINGE 1ML ONE (16:21)
[2020-09-16 16:22] VITALS: BP 120/77
[2020-09-16] MEDS ORDERED: MORPHINE SULF INJ 2 MG/ML SYRINGE 1ML IV ONE (16:30)
[2020-09-16] MEDS ORDERED: ONDANSETRON HCL 4 MG/2 ML VIAL IM ONE (16:30)
== END 2020-09-16 14:37 | disposition home or self-care (01) ==
LOC: ER 10:31
DX: N39.0 Urinary tract infection, site not specified (principal); R07.89 Other chest pain; R51.9 Headache, unspecified; M19.90 Unspecified osteoarthritis, unspecified site; E78.5 Hyperlipidemia, unspecified; Z90.49 Acquired absence of other specified parts of digestive tract; Z79.899 Other long term (current) drug therapy; Z20.822 Contact with and (suspected) exposure to COVID-19; Z87.891 Personal history of nicotine dependence
CPT/HCPCS: 36415; 71045; 74176; 80053; 81001; 83605; 83690; 83735; 85025; 85049; 87040; 87426; 93005; 96361; 96365; 96372; 96375; 96376; 99285; J1956; J2270; J2405

== ENCOUNTER 2021-01-17 20:27 | Emergency (ER) | payer OTHER, MEDICAID ==
[~2021-01-17] VITALS: Ht 165.1 cm; Wt 86.2 kg
[~2021-01-17 20:27] MED LIST changes: +LEVO500T31 PO
[2021-01-17 22:45] LABS: Hematocrit 39.7 % (41.0-53.0); Hemoglobin 12.9 g/dL (13.5-17.5); Mean Corpuscular Hemoglobin 29.8 pg (28.0-32.0); Mean Corpuscular Hgb Conc. 32.5 g/dL (32.0-36.0); Mean Corpuscular Volume 91.8 fL (80.0-100.0); Red Blood Cells 4.33 10^6/uL (4.5-5.90); Red Cell Distribution Width 14.8 % (11.8-14.3); White Blood Cell 2.8 10^3/uL (4.4-10.8)
[2021-01-17 22:48] LABS: Basophils % (manual) 0 (0.0-2.0); Blast Cells 0; Metamyelocytes % 0; Myelocytes % 0; Promyelocytes % 0; Reactive Lymphocytes 0
[2021-01-17 23:02] LABS: Calcium 9.1 mg/dL (8.5-10.1); Magnesium 2.4 mg/dL (1.6-2.6); Potassium 4.2 mmol/L (3.5-5.1)
[2021-01-17 23:04] LABS: BUN/Creatinine Ratio 13.9; INR 0.98 (0.9-1.15)
[2021-01-17 23:09] LABS: Band Neutrophils % (manual) 2; Eosinophils % (manual) 1 (0-7); Lymphocytes % (manual) 50 (10.0-50.0); Monocytes % (manual) 16 (0-12)
[2021-01-17 23:16] LABS: Bilirubin, Total 0.2 mg/dL (0.2-1.0); Total Protein 7.9 g/dL (6.4-8.2)
[2021-01-18] MEDS ORDERED: IODIXANOL 320MG/ML 100ML BTL IV ONE (00:32)
[2021-01-18 02:33] LABS: Urine Bacteria NONE SEEN /hpf (None Seen); Urine Blood Negative /uL (Negative); Urine Hyaline Cast MOD /lpf (0 - 2); Urine Mucus FEW (None Seen); Urine Specific Gravity 1.039 (1.001-1.035); Urine WBC <1 /hpf (0 - 3)
[2021-01-18 03:20] VITALS: BP 128/91
== END 2021-01-18 03:36 | disposition home or self-care (01) ==
LOC: ER 20:34
DX: R10.9 Unspecified abdominal pain (principal); M19.90 Unspecified osteoarthritis, unspecified site; E78.5 Hyperlipidemia, unspecified; Z79.899 Other long term (current) drug therapy; Z90.49 Acquired absence of other specified parts of digestive tract
CPT/HCPCS: 36415; 74177; 80053; 81001; 83605; 83735; 85007; 85027; 85610; 99285; Q9967

== ENCOUNTER 2021-05-03 23:35 | Inpatient (IN) | payer OTHER, MEDICAID ==
[~2021-05-03] VITALS: Ht 165.1 cm; Wt 79.7 kg
[2021-05-04] MEDS ORDERED: KETOROLAC TROMETH 30 MG/ML 1ML VIAL IV ONE (03:00)
[2021-05-04] MEDS ORDERED: OXYCODONE W/ ACETAMINOPHEN 5/325MG TABLET PO ONE ×2 (05:30→09:15)
[2021-05-04] MEDS ORDERED: HYDROmorphone HCL 2 MG/ML VL IV ONE (05:45)
[2021-05-04] MEDS ORDERED: SODIUM CHLORIDE 0.9% 1,000 ML IV ONE ×2 (06:15)
[2021-05-04] MEDS ORDERED: LORazepam 2MG/ML-1ML VIAL IV ONE (10:00)
[2021-05-04] MEDS ORDERED: OXYCODONE W/ ACETAMINOPHEN 5/325MG TABLET PO PRN (11:30)
[2021-05-04 13:21] LABS: INR 1.03 (0.9-1.15)
[2021-05-04] MEDS: HYDROmorphone HCL 2 MG/ML VL IV PRN ×2 (14:34→20:38)
[2021-05-04 15:20] LABS: Basophils # (auto) 0.1 10 ^3/uL (0-0.2); Eosinophils # (auto) 0.1 10 ^3/uL (0-0.8); Eosinophils % (auto) 1.9 % (0.0-7.0); Hematocrit 35.2 % (41.0-53.0); Hemoglobin 11.9 g/dL (13.5-17.5); Lymphocytes # (auto) 2.4 10 ^3/uL (0.4-5.4); Lymphocytes % (auto) 32.4 % (10.0-50.0); Mean Corpuscular Hgb Conc. 33.8 g/dL (32.0-36.0); Mean Corpuscular Volume 91.8 fL (80.0-100.0); Monocytes # (auto) 0.6 10 ^3/uL (0-1.3); Monocytes % (auto) 8.4 % (0.0-12.0); Neutrophils # (auto) 4.1 10 ^3/uL (1.6-8.6); Neutrophils % (auto) 56.3 % (37.0-80.0); Nucleated Red Blood Cells % 0.1 %; Red Blood Cells 3.84 10^6/uL (4.5-5.90); Red Cell Distribution Width 15.2 % (11.8-14.3); White Blood Cell 7.3 10^3/uL (4.4-10.8)
[2021-05-04] MEDS ORDERED: ONDANSETRON HCL 4 MG/2 ML VIAL IV PRN (15:30)
[2021-05-04] MEDS ORDERED: ACETAMINOPHEN 325 MG TAB PO PRN (15:30)
[2021-05-04] MEDS ORDERED: hydrALAZINE HCL 20 MG/ML VL IV PRN (15:30)
[2021-05-04] MEDS ORDERED: MORPHINE SULFATE INJECTION 2 MG/ML SYRG IV PRN (15:30)
[2021-05-04] MEDS ORDERED: ACETAMINOPHEN 500 MG TAB PO PRN (15:30)
[2021-05-04] MEDS ORDERED: NITROGLYCERIN 0.4 MG SL TAB SL PRN (15:30)
[2021-05-04] MEDS: D5W/SOD CHL 0.45% 1,000 ML IV SCH ×2 (16:15→23:30)
[2021-05-04 16:25] LABS: Albumin 3.5 g/dL (3.4-5.0); BUN/Creatinine Ratio 21.8; Calcium 8.1 mg/dL (8.5-10.1); Potassium 3.5 mmol/L (3.5-5.1)
[2021-05-04 16:28] LABS: Bilirubin, Total 0.3 mg/dL (0.2-1.0); Total Protein 6.3 g/dL (6.4-8.2)
[2021-05-04] MEDS: SUCRALFATE 1 GM TAB PO SCH ×2 (18:45→22:24)
[2021-05-04] MEDS: TAMSULOSIN HYDROCHLORIDE 0.4 MG CAP PO SCH (18:45)
[2021-05-04 20:00] VITALS: BP 110/77
[2021-05-04 22:00] VITALS: BP 110/77
[2021-05-04] MEDS: GABAPENTIN 400 MG CAP PO SCH (22:24)
[2021-05-04] MEDS: SENNA 8.6 MG TAB PO SCH (22:25)
[2021-05-04] MEDS: TEMAZEPAM 15 MG CAP PO SCH (22:25)
[2021-05-05] VITALS (11 sets, daily range): BP systolic 116–157; BP diastolic 82–105
[2021-05-05] MEDS: HYDROmorphone HCL 2 MG/ML VL IV PRN ×7 (01:05→20:03)
[2021-05-05] MEDS: GABAPENTIN 400 MG CAP PO SCH ×3 (06:13→22:10)
[2021-05-05] MEDS: SUCRALFATE 1 GM TAB PO SCH ×4 (06:14→22:09)
[2021-05-05 06:45] LABS: Basophils # (auto) 0.1 10 ^3/uL (0-0.2); Basophils % (auto) 1.1 % (0.0-2.0); Eosinophils # (auto) 0.2 10 ^3/uL (0-0.8); Eosinophils % (auto) 2.3 % (0.0-7.0); Hematocrit 36.4 % (41.0-53.0); Hemoglobin 12.6 g/dL (13.5-17.5); Lymphocytes # (auto) 2.2 10 ^3/uL (0.4-5.4); Lymphocytes % (auto) 28.8 % (10.0-50.0); Mean Corpuscular Hemoglobin 31.5 pg (28.0-32.0); Mean Corpuscular Hgb Conc. 34.4 g/dL (32.0-36.0); Mean Corpuscular Volume 91.4 fL (80.0-100.0); Monocytes # (auto) 0.6 10 ^3/uL (0-1.3); Monocytes % (auto) 7.8 % (0.0-12.0); Neutrophils # (auto) 4.7 10 ^3/uL (1.6-8.6); Nucleated Red Blood Cells % 0.1 %; Red Blood Cells 3.99 10^6/uL (4.5-5.90); Red Cell Distribution Width 15.2 % (11.8-14.3); White Blood Cell 7.8 10^3/uL (4.4-10.8)
[2021-05-05 07:05] LABS: Calcium 8.9 mg/dL (8.5-10.1); Potassium 3.6 mmol/L (3.5-5.1)
[2021-05-05 07:07] LABS: BUN/Creatinine Ratio 15.8
[2021-05-05] MEDS: DICYCLOMINE HCL 10 MG CAP PO SCH (09:31)
[2021-05-05] MEDS: PANTOPRAZOLE 40 MG TAB PO SCH (09:32)
[2021-05-05] MEDS: SENNA 8.6 MG TAB PO SCH ×2 (09:32→22:10)
[2021-05-05] MEDS ORDERED: LIDOCAINE 2%HCL (LOCAL ANESTH.) INJ 20ML MDV ONE ×3 (14:35→15:53)
[2021-05-05] MEDS ORDERED: IOHEXOL 350 MG/ML 100ML IJ ONE (14:35)
[2021-05-05] MEDS ORDERED: MIDAZOLAM HCL 2MG/2ML 2ml VIAL (1mg/ml) ONE (14:43)
[2021-05-05] MEDS ORDERED: fentaNYL CITRATE 100 MCG/2 ML VL ONE (14:43)
[2021-05-05] MEDS ORDERED: diphenhdrAMINE HCL 50 MG/1 ML VL ONE (15:18)
[2021-05-05] MEDS ORDERED: cefTRIAXone 1GM/50ML D5W 50 ML IV ONE (15:18)
[2021-05-05] MEDS: SODIUM CHLORIDE 0.9% 1,000 ML IV SCH (16:17)
[2021-05-05] MEDS: TAMSULOSIN HYDROCHLORIDE 0.4 MG CAP PO SCH (18:00)
[2021-05-05] MEDS: TEMAZEPAM 15 MG CAP PO SCH (22:10)
[2021-05-06] MEDS: HYDROmorphone HCL 2 MG/ML VL IV PRN ×5 (00:41→13:01)
[2021-05-06] MEDS: SODIUM CHLORIDE 0.9% 1,000 ML IV SCH ×2 (02:17→04:27)
[2021-05-06 04:56] VITALS: BP 112/77
[2021-05-06] MEDS: GABAPENTIN 400 MG CAP PO SCH (05:34)
[2021-05-06] MEDS: SUCRALFATE 1 GM TAB PO SCH (05:34)
[2021-05-06 09:00] VITALS: BP 127/97
[2021-05-06] MEDS: DICYCLOMINE HCL 10 MG CAP PO SCH (09:09)
[2021-05-06] MEDS: PANTOPRAZOLE 40 MG TAB PO SCH (09:09)
[2021-05-06] MEDS: SENNA 8.6 MG TAB PO SCH (09:09)
[2021-05-06 13:00] VITALS: BP 125/86
[2021-05-06 14:51] VITALS: BP 120/62
== END 2021-05-06 15:19 | disposition home or self-care (01) | DRG 694 ==
LOC: ER 23:35 → TELE 05-04 15:25 → CENTRAL 05-04 17:40
PROVIDERS: ADMIT Hospitalist; ATTEND Hospitalist
PROC: 0T9130Z Drainage of Left Kidney with Drainage Device, Percutaneous Approach (ICD-10-PCS; principal; 2021-05-05)
PROC: BT14YZZ Fluoroscopy of Kidneys, Ureters and Bladder using Other Contrast (ICD-10-PCS; 2021-05-05)
PROC: BT42ZZZ Ultrasonography of Left Kidney (ICD-10-PCS; 2021-05-05)
DX: N13.30 Unspecified hydronephrosis (principal); F11.20 Opioid dependence, uncomplicated; G89.29 Other chronic pain; Z20.822 Contact with and (suspected) exposure to COVID-19; K21.9 Gastro-esophageal reflux disease without esophagitis; Z82.49 Family history of ischemic heart disease and other diseases of the circulatory system; Z87.442 Personal history of urinary calculi; Z87.891 Personal history of nicotine dependence; Z87.440 Personal history of urinary (tract) infections
CPT/HCPCS: 36415; 74176; 76942; 80048; 80053; 85025; 85610; 87426; 93005; 96361; 96374; 96375; 96376; 99152; 99153; C1729; G0378; J0696; J1885; J2250

== ENCOUNTER 2021-05-07 23:10 | Inpatient (IN) | payer OTHER, MEDICAID ==
[~2021-05-07] VITALS: Ht 165.1 cm; Wt 80.3 kg
[~2021-05-07 23:10] MED LIST changes: -LEVO500T31 PO
[2021-05-08] MEDS ORDERED: HYDROmorphone HCL 2 MG/ML VL IV ONE ×2 (00:15→02:30)
[2021-05-08 01:03] LABS: Basophils # (auto) 0.1 10 ^3/uL (0-0.2); Basophils % (auto) 1.2 % (0.0-2.0); Eosinophils # (auto) 0.1 10 ^3/uL (0-0.8); Eosinophils % (auto) 0.9 % (0.0-7.0); Hematocrit 39.4 % (41.0-53.0); Hemoglobin 13.2 g/dL (13.5-17.5); Lymphocytes # (auto) 2.4 10 ^3/uL (0.4-5.4); Lymphocytes % (auto) 28.9 % (10.0-50.0); Mean Corpuscular Hemoglobin 30.7 pg (28.0-32.0); Mean Corpuscular Hgb Conc. 33.5 g/dL (32.0-36.0); Mean Corpuscular Volume 91.4 fL (80.0-100.0); Monocytes # (auto) 0.6 10 ^3/uL (0-1.3); Monocytes % (auto) 7.3 % (0.0-12.0); Neutrophils % (auto) 61.7 % (37.0-80.0); Nucleated Red Blood Cells % 0.1 %; Red Blood Cells 4.31 10^6/uL (4.5-5.90); Red Cell Distribution Width 14.9 % (11.8-14.3); White Blood Cell 8.2 10^3/uL (4.4-10.8)
[2021-05-08 01:14] LABS: BUN/Creatinine Ratio 15.4; Calcium 9.2 mg/dL (8.5-10.1); Potassium 3.3 mmol/L (3.5-5.1)
[2021-05-08 01:41] LABS: Bilirubin, Total 0.3 mg/dL (0.2-1.0); Total Protein 7.5 g/dL (6.4-8.2)
[2021-05-08 01:48] LABS: INR 1.01 (0.9-1.15)
[2021-05-08] MEDS ORDERED: ONDANSETRON HCL 4 MG/2 ML VIAL IV ONE (02:30)
[2021-05-08] MEDS ORDERED: ACETAMINOPHEN 325 MG TAB PO PRN (05:15)
[2021-05-08] MEDS ORDERED: NARCAN PRN (05:15)
[2021-05-08] MEDS ORDERED: OXYCODONE W/ ACETAMINOPHEN 5/325MG TABLET PO PRN (05:15)
[2021-05-08] MEDS ORDERED: MORPHINE SULFATE INJECTION 2 MG/ML SYRG IV PRN (05:15)
[2021-05-08] MEDS ORDERED: MORPHINE SULFATE 4 MG/ML SYR/VIAL IV PRN (05:15)
[2021-05-08] MEDS ORDERED: ONDANSETRON HCL 4 MG/2 ML VIAL IV PRN (05:15)
[2021-05-08] MEDS: SODIUM CHLORIDE 0.9% 1,000 ML IV SCH ×3 (05:37→21:55)
[2021-05-08] MEDS: SUCRALFATE 1 GM TAB PO SCH ×4 (06:00→22:00)
[2021-05-08] MEDS: POTASSIUM CHL 10MEQ/50ML 50 ML IV SCH ×4 (06:15→09:47)
[2021-05-08] MEDS: GABAPENTIN 400 MG CAP PO SCH ×3 (06:20→22:00)
[2021-05-08 06:35] LABS: Hematocrit 37.6 % (41.0-53.0); Hemoglobin 12.9 g/dL (13.5-17.5)
[2021-05-08 09:00] VITALS: BP 115/79
[2021-05-08 09:14] LABS: Urine Blood 3+ /uL (Negative); Urine WBC 212 /hpf (0 - 3)
[2021-05-08 09:15] LABS: Urine Bacteria NONE SEEN /hpf (None Seen)
[2021-05-08 09:23] LABS: Urine Specific Gravity 1.025 (1.001-1.035)
[2021-05-08] MEDS: DICYCLOMINE HCL 10 MG CAP PO SCH (09:42)
[2021-05-08] MEDS: TAMSULOSIN HYDROCHLORIDE 0.4 MG CAP PO SCH (09:43)
[2021-05-08] MEDS: SENNA 8.6 MG TAB PO SCH ×2 (09:43→22:00)
[2021-05-08] MEDS: PANTOPRAZOLE 40 MG TAB PO SCH (09:43)
[2021-05-08 10:01] VITALS: BP 123/69
[2021-05-08 10:55] LABS: Hematocrit 36.3 % (41.0-53.0); Hemoglobin 12.1 g/dL (13.5-17.5)
[2021-05-08 12:43] VITALS: BP 123/69
[2021-05-08] MEDS: HYDROmorphone HCL 2 MG/ML VL IV PRN ×3 (13:30→23:05)
[2021-05-08 17:01] VITALS: BP 133/86
[2021-05-08 17:49] LABS: Hematocrit 35.3 % (41.0-53.0); Hemoglobin 11.9 g/dL (13.5-17.5)
[2021-05-08 20:00] VITALS: BP 132/73
[2021-05-08] MEDS: ATORVASTATIN 20 MG TAB PO SCH (22:00)
[2021-05-08 22:29] VITALS: BP 132/73
[2021-05-09] MEDS: HYDROmorphone HCL 2 MG/ML VL IV PRN ×4 (02:30→21:12)
[2021-05-09 05:00] VITALS: BP 120/83
[2021-05-09 05:09] LABS: Basophils # (auto) 0.1 10 ^3/uL (0-0.2); Basophils % (auto) 2.1 % (0.0-2.0); Eosinophils # (auto) 0.2 10 ^3/uL (0-0.8); Hematocrit 35.7 % (41.0-53.0); Lymphocytes # (auto) 2.3 10 ^3/uL (0.4-5.4); Lymphocytes % (auto) 41.9 % (10.0-50.0); Mean Corpuscular Hgb Conc. 33.6 g/dL (32.0-36.0); Mean Corpuscular Volume 92.1 fL (80.0-100.0); Monocytes # (auto) 0.5 10 ^3/uL (0-1.3); Monocytes % (auto) 8.7 % (0.0-12.0); Neutrophils # (auto) 2.4 10 ^3/uL (1.6-8.6); Neutrophils % (auto) 43.3 % (37.0-80.0); Nucleated Red Blood Cells % 0.2 %; Red Blood Cells 3.88 10^6/uL (4.5-5.90); Red Cell Distribution Width 14.6 % (11.8-14.3); White Blood Cell 5.5 10^3/uL (4.4-10.8)
[2021-05-09 05:37] LABS: Albumin 3.5 g/dL (3.4-5.0); BUN/Creatinine Ratio 11.5; Calcium 8.7 mg/dL (8.5-10.1)
[2021-05-09 05:40] LABS: Bilirubin, Total 0.3 mg/dL (0.2-1.0); Total Protein 6.7 g/dL (6.4-8.2)
[2021-05-09] MEDS: GABAPENTIN 400 MG CAP PO SCH ×3 (06:00→22:00)
[2021-05-09] MEDS: SUCRALFATE 1 GM TAB PO SCH ×4 (06:00→22:00)
[2021-05-09] MEDS: SODIUM CHLORIDE 0.9% 1,000 ML IV SCH ×3 (06:15→23:01)
[2021-05-09 09:00] VITALS: BP 130/83
[2021-05-09] MEDS: PANTOPRAZOLE 40 MG TAB PO SCH (09:25)
[2021-05-09] MEDS: TAMSULOSIN HYDROCHLORIDE 0.4 MG CAP PO SCH (09:25)
[2021-05-09] MEDS: DICYCLOMINE HCL 10 MG CAP PO SCH (09:26)
[2021-05-09] MEDS: SENNA 8.6 MG TAB PO SCH ×2 (09:26→22:00)
[2021-05-09] MEDS: OXYCODONE W/ ACETAMINOPHEN 5/325MG TABLET PO PRN ×3 (09:27→23:18)
[2021-05-09 12:36] VITALS: BP 119/78
[2021-05-09 16:47] VITALS: BP 147/90
[2021-05-09 22:00] VITALS: BP 134/54
[2021-05-09] MEDS: ATORVASTATIN 20 MG TAB PO SCH (22:00)
[2021-05-10] MEDS: HYDROmorphone HCL 2 MG/ML VL IV PRN ×3 (02:21→09:47)
[2021-05-10 05:00] VITALS: BP 127/99
[2021-05-10] MEDS: GABAPENTIN 400 MG CAP PO SCH (06:10)
[2021-05-10] MEDS: SUCRALFATE 1 GM TAB PO SCH ×2 (06:10→11:06)
[2021-05-10] MEDS: OXYCODONE W/ ACETAMINOPHEN 5/325MG TABLET PO PRN (06:11)
[2021-05-10] MEDS: SODIUM CHLORIDE 0.9% 1,000 ML IV SCH (07:15)
[2021-05-10 08:06] LABS: Basophils # (auto) 0.1 10 ^3/uL (0-0.2); Eosinophils # (auto) 0.2 10 ^3/uL (0-0.8); Eosinophils % (auto) 3.2 % (0.0-7.0); Hematocrit 38.3 % (41.0-53.0); Hemoglobin 12.9 g/dL (13.5-17.5); Lymphocytes # (auto) 2.3 10 ^3/uL (0.4-5.4); Lymphocytes % (auto) 30.4 % (10.0-50.0); Mean Corpuscular Hemoglobin 30.8 pg (28.0-32.0); Mean Corpuscular Hgb Conc. 33.7 g/dL (32.0-36.0); Mean Corpuscular Volume 91.2 fL (80.0-100.0); Monocytes # (auto) 0.6 10 ^3/uL (0-1.3); Monocytes % (auto) 8.4 % (0.0-12.0); Neutrophils # (auto) 4.3 10 ^3/uL (1.6-8.6); Nucleated Red Blood Cells % 0.1 %; Red Cell Distribution Width 14.9 % (11.8-14.3); White Blood Cell 7.5 10^3/uL (4.4-10.8)
[2021-05-10 08:22] LABS: Calcium 9.4 mg/dL (8.5-10.1); Potassium 4.1 mmol/L (3.5-5.1)
[2021-05-10 08:24] LABS: BUN/Creatinine Ratio 14.9
[2021-05-10 09:00] VITALS: BP 142/67
[2021-05-10] MEDS: TAMSULOSIN HYDROCHLORIDE 0.4 MG CAP PO SCH (09:01)
[2021-05-10] MEDS: DICYCLOMINE HCL 10 MG CAP PO SCH (09:01)
[2021-05-10] MEDS: PANTOPRAZOLE 40 MG TAB PO SCH (09:02)
[2021-05-10] MEDS: SENNA 8.6 MG TAB PO SCH (09:03)
[2021-05-10 11:16] VITALS: BP 142/67
[2021-05-10 12:48] VITALS: BP 119/83
== END 2021-05-10 15:59 | disposition home health service (06) | DRG 699 ==
LOC: ER 23:10 → OVERFLOW 05-08 05:13 → WEST WING 05-08 08:46
PROVIDERS: ADMIT Internal Medicine; ATTEND Internal Medicine
DX: T83.022A Displacement of nephrostomy catheter, initial encounter (principal); N13.30 Unspecified hydronephrosis; F11.20 Opioid dependence, uncomplicated; K21.9 Gastro-esophageal reflux disease without esophagitis; R31.9 Hematuria, unspecified; E87.6 Hypokalemia; D35.00 Benign neoplasm of unspecified adrenal gland; Z20.822 Contact with and (suspected) exposure to COVID-19; G89.4 Chronic pain syndrome; T83.092A Other mechanical complication of nephrostomy catheter, initial encounter; E78.5 Hyperlipidemia, unspecified; N13.5 Crossing vessel and stricture of ureter without hydronephrosis; Y73.2 Prosthetic and other implants, materials and accessory gastroenterology and urology devices associated with adverse incidents; N99.522 Malfunction of incontinent external stoma of urinary tract; M19.90 Unspecified osteoarthritis, unspecified site; Z82.49 Family history of ischemic heart disease and other diseases of the circulatory system; Z82.3 Family history of stroke; Z79.899 Other long term (current) drug therapy; Z90.49 Acquired absence of other specified parts of digestive tract; Z87.440 Personal history of urinary (tract) infections
CPT/HCPCS: 36415; 74176; 80048; 80053; 81001; 84132; 85014; 85018; 85025; 85610; 86850; 86900; 86901; 87081; 87426; 93005; 96374; 96375; G0378; J2405

== ENCOUNTER 2021-06-02 21:30 | Emergency (ER) | payer OTHER, MEDICAID ==
[~2021-06-02] VITALS: Ht 165.1 cm; Wt 81.6 kg
[2021-06-03] MEDS ORDERED: KETOROLAC TROMETH 30 MG/ML 1ML VIAL IM ONE (01:00)
[2021-06-03 03:20] LABS: Urine Bacteria FEW /hpf (None Seen); Urine Blood 1+ /uL (Negative); Urine Budding Yeast MODERATE /hpf (None Seen); Urine Hyaline Cast FEW /lpf (0 - 2); Urine Specific Gravity 1.009 (1.001-1.035); Urine WBC 8 /hpf (0 - 3)
[2021-06-03 04:00] VITALS: BP 123/75
== END 2021-06-03 03:08 | disposition home or self-care (01) ==
LOC: ER 21:30
DX: N13.30 Unspecified hydronephrosis (principal); K21.9 Gastro-esophageal reflux disease without esophagitis; E78.5 Hyperlipidemia, unspecified; Z90.49 Acquired absence of other specified parts of digestive tract; Z87.891 Personal history of nicotine dependence; Z87.442 Personal history of urinary calculi
CPT/HCPCS: 74176; 81001; 96372; 99285; J1885

== ENCOUNTER 2021-07-24 06:12 | Emergency (ER) | payer OTHER, MEDICAID ==
[~2021-07-24] VITALS: Ht 165.1 cm; Wt 83.9 kg
[2021-07-24 06:12] VITALS: BP 167/92
== END 2021-07-24 10:52 | disposition left against medical advice (07) ==
LOC: ER 06:12
DX: S86.912A Strain of unspecified muscle(s) and tendon(s) at lower leg level, left leg, initial encounter (principal); N13.30 Unspecified hydronephrosis; K21.9 Gastro-esophageal reflux disease without esophagitis; E78.5 Hyperlipidemia, unspecified; Z90.49 Acquired absence of other specified parts of digestive tract; Z87.891 Personal history of nicotine dependence; X58.XXXA Exposure to other specified factors, initial encounter; Y93.89 Activity, other specified; Y92.89 Other specified places as the place of occurrence of the external cause; Y99.8 Other external cause status
CPT/HCPCS: 73562; 73590; 74176; 74425; 93971